=== PATIENT | female | born 1975 | race African-American/Black ===

== ENCOUNTER 2016-06-21 13:01 | Inpatient (IN) | payer MEDICAID, OTHER ==
[2016-06-21] VITALS (33 sets, daily range): BP systolic 64–130; BP diastolic 35–79
[~2016-06-21] VITALS: Ht 165.1 cm; Wt 71.7 kg
[2016-06-21] MEDS ORDERED: PIPERACILLIN /TAZOBACTAM 3.375 G in IV D5W 50 ML IV ONE (13:30)
[2016-06-21] MEDS ORDERED: IV NS 0.9% 1,000 ML BAG IV ONE ×2 (13:30→14:00)
[2016-06-21] MEDS ORDERED: VANCOMYCIN 1 GM in IV D5W 250 ML IV ONE ×2 (13:30→14:00)
[2016-06-21] MEDS ORDERED: IV SET PRIMARY 1 EA INFUS.SET MC ONE (13:51)
[2016-06-21] MEDS ORDERED: IV NS 0.9% 2,000 ML ONE (13:51)
[2016-06-21] MEDS ORDERED: IV NS 0.9% 250 ML IV ONE (13:51)
[2016-06-21] MEDS ORDERED: IV SET PRIMARY PUMP SET 1 EA INFUS.SET MC ONE ×3 (13:51→18:52)
[2016-06-21] MEDS ORDERED: IV NS 0.9% 50 ML BAG IV ONE (14:00)
[2016-06-21] MEDS ORDERED: IV D5/ 0.9% NACL 1,000 ML IV PRN (14:00)
[2016-06-21 14:08] LABS: BASOPHILS % (AUTO) 0.1 % (0.0-2.0); DIFF TOTAL % 100 %; HEMATOCRIT 30 % (33-45); HEMOGLOBIN 9.6 g/dL (11.5-14.8); LYMPHOCYTES # (AUTO) 0.9 /CMM (0.8-4.8); LYMPHOCYTES % (AUTO) 4.1 % (20.0-44.0); MEAN CORPUSCULAR HEMOGLOBIN 25 PG (26.0-33.0); MEAN CORPUSCULAR HGB CONC 32 g/dl (31.0-36.0); MEAN CORPUSCULAR VOLUME 78 fL (82-100); MONOCYTES # (AUTO) 0.7 /CMM (0.1-1.30); NEUTROPHILS % (AUTO) 92.8 % (43.0-81.0); PLATELET COUNT (AUTO) 461 /CMM (150-450); RED BLOOD CELL COUNT(AUTO) 3.84 MIL/uL (4.0-5.2); WHITE BLOOD COUNT (AUTO) 21.6 K/uL (4.3-11.0)
[2016-06-21 14:17] LABS: ALANINE AMINOTRANSFERASE 42 U/L (12-78); ALBUMIN 2.1 g/dL (3.4-5.0); ANION GAP 18 (5-14); ASPARTATE AMINOTRANSFERASE 44 U/L (15-37); BILIRUBIN,DIRECT 0.1 mg/dL (0.0-0.2); BILIRUBIN,TOTAL 0.2 mg/dL (0.2-1.0); CARBON DIOXIDE 15 mmol/L (21-32); CHLORIDE 99 mmol/L (98-107); CREATININE 0.5 mg/dL (0.6-1.3); GFR 166 mL/min (>60); GLUCOSE 109 mg/dL (74-106); INDIRECT BILIRUBIN 0.1 mg/dL (0.0-1.1); POTASSIUM 4.5 mmol/L (3.5-5.1); SODIUM SERUM 128 mmol/L (136-145); TOTAL PROTEIN, SERUM 7.6 g/dL (6.4-8.2); UREA NITROGEN, BLOOD 50 mg/dL (7-18)
[2016-06-21 14:18] LABS: TROPONIN I < 0.017 ng/mL (0.00-0.056)
[2016-06-21 14:20] LABS: INR 1.09 (0.87-1.13); PROTHROMBIN TIME 11.8 SECS (9.5-12.7)
[2016-06-21 14:22] LABS: LACTIC ACID 1.5 mmol/L (0.4-2.0)
[2016-06-21] MEDS ORDERED: IV NS 0.9% 1,000 ML IV PRN (15:00)
[2016-06-21 15:15] LABS: ABG BASE EXCESS -13.4 mmol/L; ABG HCO3 12.8 mmol/L; ABG PCO2 30.4 mmHg (35.0-45.0); ABG PH 7.241 (7.350-7.450); ABG PO2 94.6 mmHg (75.0-100.0); ABG TOTAL HEMOGLOBIN 8.9 G/dL (12.0-16.0); ALLEN TEST Pass; AaDO2 83.6 mmHg; O2Hb 94.1 % (94.0-97.0)
[2016-06-21] MEDS ORDERED: FERR220S2 GT (15:27)
[2016-06-21] MEDS ORDERED: DIPH50CA4 GT (15:27)
[2016-06-21] MEDS ORDERED: CYAN100T3 GT (15:27)
[2016-06-21] MEDS ORDERED: PANT40SU2 GT (15:27)
[2016-06-21] MEDS ORDERED: MORP15TA10 GT (15:27)
[2016-06-21] MEDS ORDERED: AMIN236L GT (15:27)
[2016-06-21] MEDS ORDERED: POTA20LI4 GT (15:27)
[2016-06-21] MEDS ORDERED: ASCO500T10 GT (15:27)
[2016-06-21] MEDS ORDERED: MULT240L7 GT (15:27)
[2016-06-21] MEDS ORDERED: MAG355OR18 GT (15:27)
[2016-06-21] MEDS ORDERED: ESCI20TA GT (15:27)
[2016-06-21] MEDS ORDERED: ARGI1POW13 GT (15:27)
[2016-06-21] MEDS ORDERED: BACL10TA GT (15:27)
[2016-06-21] MEDS ORDERED: MAGN400O6 GT (15:27)
[2016-06-21] MEDS ORDERED: IPRA3AMP HHN (15:27)
[2016-06-21] MEDS ORDERED: ENOX40DI SQ (15:27)
[2016-06-21] MEDS ORDERED: HYDR-3326 GT (15:27)
[2016-06-21] MEDS ORDERED: TEMA15CA GT (15:27)
[2016-06-21] MEDS ORDERED: POLY15DR17 EACHEYE (15:27)
[2016-06-21] MEDS ORDERED: ACET325T53 GT (15:27)
[2016-06-21] MEDS ORDERED: ZINC220C6 GT (15:31)
[2016-06-21 15:51] LABS: IRON, SERUM 32 ug/dl (50-175); PERCENT SATURATION 18 % (14-33); TOTAL IRON BINDING CAPACITY 182 ug/dl (250-450)
[2016-06-21] MEDS ORDERED: FEE PK DOSING 1 MIN EA MC ONE (16:11)
[2016-06-21] MEDS ORDERED: NEUTRA PHOS GT (16:19)
[2016-06-21] MEDS ORDERED: IV D5/ 0.9% NACL 1,000 ML IV ONE (17:00)
[2016-06-21 17:03] LABS: BAND % (MANUAL) 4 % (0.0-5.0)
[2016-06-21 17:04] LABS: LYMPHOCYTES % (MANUAL) 8 % (16-48)
[2016-06-21] MEDS ORDERED: SECONDARY IV SET 1 EA INFUS.SET MC ONE (18:52)
[2016-06-21] MEDS: Sodium Bicarbonate 100 MEQ in IV D5W 1,000 ML IV PRN (19:24)
[2016-06-21] MEDS: NOREPINEPHRINE 16 MG in IV D5W 500 ML IV PRN (19:25)
[2016-06-21] MEDS ORDERED: GLYTROL 1,000 ML BAG GT PRN (20:00)
[2016-06-21] MEDS: PIPERACILLIN /TAZOBACTAM 3.375 G in IV D5W 50 ML IV SCH ×2 (20:17→23:01)
[2016-06-21] MEDS: DAKINS HALF STRENGTH (0.25%) 480 ML BOTTLE TOP SCH (20:17)
[2016-06-21] MEDS ORDERED: VANCOMYCIN 1 GM in IV D5W 250 ML IV SCH (22:00)
[2016-06-22] VITALS (108 sets, daily range): BP systolic 86–149; BP diastolic 29–75
[2016-06-22 01:20] LABS: PH,URINE 5.5 (5.0-8.0)
[2016-06-22 01:21] LABS: ADD UA MICROSCOPIC YES; KETONES,URINE NEGATIVE (NEGATIVE); LEUKOCYTE ESTERASE ,URINE 2+ (NEGATIVE)
[2016-06-22 01:33] LABS: ADD URINE CULTURE YES; WBC,URINE 51-80 /HPF (0-3)
[2016-06-22] MEDS ORDERED: VANCOMYCIN 1 GM VIAL ONE (01:58)
[2016-06-22] MEDS ORDERED: IV D5W 250 ML IV ONE (01:58)
[2016-06-22] MEDS ORDERED: IV SET PRIMARY PUMP SET 1 EA INFUS.SET MC ONE ×2 (01:59→09:20)
[2016-06-22] MEDS ORDERED: SECONDARY IV SET 1 EA INFUS.SET MC ONE (02:04)
[2016-06-22] MEDS: VANCOMYCIN 1 GM in IV D5W 250 ML IV SCH ×2 (02:05→13:56)
[2016-06-22 05:13] LABS: ALBUMIN 1.6 g/dL (3.4-5.0); BILIRUBIN,TOTAL 0.3 mg/dL (0.2-1.0); CALCIUM, SERUM 9.6 mg/dL (8.5-10.1); CREATININE 0.5 mg/dL (0.6-1.3); PHOSPHORUS 2.2 mg/dL (2.5-4.9); POTASSIUM 2.9 mmol/L (3.5-5.1); TOTAL PROTEIN, SERUM 6.1 g/dL (6.4-8.2)
[2016-06-22] MEDS: Sodium Bicarbonate 100 MEQ in IV D5W 1,000 ML IV PRN ×2 (05:21→16:20)
[2016-06-22] MEDS: PIPERACILLIN /TAZOBACTAM 3.375 G in IV D5W 50 ML IV SCH ×3 (05:21→17:06)
[2016-06-22 05:35] LABS: DIFF TOTAL % 100 %; EOSINOPHILS % (AUTO) 0.2 % (0.0-6.0); HEMATOCRIT 24 % (33-45); HEMOGLOBIN 7.6 g/dL (11.5-14.8); LYMPHOCYTES # (AUTO) 0.5 /CMM (0.8-4.8); LYMPHOCYTES % (AUTO) 2.6 % (20.0-44.0); MEAN CORPUSCULAR HEMOGLOBIN 25 PG (26.0-33.0); MEAN CORPUSCULAR HGB CONC 31 g/dl (31.0-36.0); MEAN CORPUSCULAR VOLUME 79 fL (82-100); MONOCYTES # (AUTO) 0.5 /CMM (0.1-1.30); MONOCYTES % (AUTO) 2.6 % (2.0-12.0); NEUTROPHILS # (AUTO) 17.2 /CMM (1.8-8.9); NEUTROPHILS % (AUTO) 94.6 % (43.0-81.0); PLATELET COUNT (AUTO) 405 /CMM (150-450); RED BLOOD CELL COUNT(AUTO) 3.06 MIL/uL (4.0-5.2); WHITE BLOOD COUNT (AUTO) 18.2 K/uL (4.3-11.0)
[2016-06-22 06:18] LABS: INR 1.12 (0.87-1.13); PROTHROMBIN TIME 12.1 SECS (9.5-12.7)
[2016-06-22] MEDS: MORPHINE SULFATE INJ 2 MG/ML DISP.SYRIN IV PRN ×3 (07:25→20:44)
[2016-06-22] MEDS: PANTOPRAZOLE 40 MG VIAL IV SCH (08:02)
[2016-06-22] MEDS: DAKINS HALF STRENGTH (0.25%) 480 ML BOTTLE TOP SCH (08:03)
[2016-06-22 09:19] LABS: ABG BASE EXCESS 1.5 mmol/L; ABG HCO3 26.4 mmol/L; ABG PCO2 42.5 mmHg (35.0-45.0); ABG PH 7.411 (7.350-7.450); ABG PO2 62.2 mmHg (75.0-100.0); ABG TOTAL HEMOGLOBIN 13.8 G/dL (12.0-16.0); ALLEN TEST Pass; AaDO2 463.6 mmHg; O2Hb 89.7 % (94.0-97.0)
[2016-06-22] MEDS: POTASSIUM CL. PREMIX PERIPHER. 50 ML IV SCH ×4 (09:26→12:40)
[2016-06-22] MEDS: Magnesium 1GM/D5W 100ML PREMIX 100 ML IV SCH ×2 (09:26→10:21)
[2016-06-22] MEDS ORDERED: POTASSIUM PHOSPHATE MM 15 MMOL in IV D5W 250 ML IV SCH (10:00)
[2016-06-22] MEDS ORDERED: SILVER NITRATE APPLICATOR 1 EA BOX TP ONE ×2 (10:00)
[2016-06-22] MEDS ORDERED: LIDOCAINE 1%-EPI 1:100,000 20 ML VIAL TP ONE (10:00)
[2016-06-22 10:03] LABS: ABG BASE EXCESS -7.5 mmol/L; ABG HCO3 17.3 mmol/L; ABG PCO2 32.2 mmHg (35.0-45.0); ABG PH 7.347 (7.350-7.450); ABG PO2 83.2 mmHg (75.0-100.0); ABG TOTAL HEMOGLOBIN 9.1 G/dL (12.0-16.0); ALLEN TEST Pass; AaDO2 128.9 mmHg; O2Hb 93.9 % (94.0-97.0)
[2016-06-22] MEDS: ALPRAZOLAM 0.25 MG TABLET GT SCH ×2 (10:25→16:20)
[2016-06-22] MEDS ORDERED: HYDROGEL DRESSING 90 GM TUBE TP PRN (14:00)
[2016-06-22] MEDS: LACTOBACILLUS RHAMNOSUS GG 1 EACH CAP.SPRINK GT SCH (16:20)
[2016-06-22] MEDS: GLYTROL 1,000 ML BAG GT PRN (16:21)
[2016-06-22] MEDS: PROSOURCE / PROSTAT (PYXIS) 30 ML UDC GT SCH (16:21)
[2016-06-22] MEDS: HYDROGEL DRESSING 90 GM TUBE TP SCH (17:06)
[2016-06-22] MEDS: NOREPINEPHRINE 16 MG in IV D5W 500 ML IV PRN (20:21)
[2016-06-22] MEDS: VANCOMYCIN 0.75 GM in IV D5W 250 ML IV SCH (20:22)
[2016-06-23] VITALS (110 sets, daily range): BP systolic 82–134; BP diastolic 41–84
[2016-06-23] MEDS: PIPERACILLIN /TAZOBACTAM 3.375 G in IV D5W 50 ML IV SCH ×4 (00:20→17:33)
[2016-06-23] MEDS: Sodium Bicarbonate 100 MEQ in IV D5W 1,000 ML IV PRN (02:33)
[2016-06-23] MEDS: MORPHINE SULFATE INJ 2 MG/ML DISP.SYRIN IV PRN ×2 (02:34→10:10)
[2016-06-23 04:56] LABS: BASOPHILS % (AUTO) 0.2 % (0.0-2.0); DIFF TOTAL % 100 %; EOSINOPHILS # (AUTO) 0.1 /CMM (0.0-0.7); HEMATOCRIT 21 % (33-45); LYMPHOCYTES # (AUTO) 0.7 /CMM (0.8-4.8); LYMPHOCYTES % (AUTO) 5.8 % (20.0-44.0); MEAN CORPUSCULAR HEMOGLOBIN 26 PG (26.0-33.0); MEAN CORPUSCULAR HGB CONC 32 g/dl (31.0-36.0); MEAN CORPUSCULAR VOLUME 79 fL (82-100); MONOCYTES # (AUTO) 0.3 /CMM (0.1-1.30); MONOCYTES % (AUTO) 2.1 % (2.0-12.0); NEUTROPHILS # (AUTO) 11.2 /CMM (1.8-8.9); NEUTROPHILS % (AUTO) 90.9 % (43.0-81.0); PLATELET COUNT (AUTO) 447 /CMM (150-450); RED BLOOD CELL COUNT(AUTO) 2.64 MIL/uL (4.0-5.2); WHITE BLOOD COUNT (AUTO) 12.3 K/uL (4.3-11.0)
[2016-06-23 05:07] LABS: HEMOGLOBIN 6.7 g/dL (11.5-14.8)
[2016-06-23 05:26] LABS: CALCIUM, SERUM 8.9 mg/dL (8.5-10.1); CREATININE 0.4 mg/dL (0.6-1.3); PHOSPHORUS 2.5 mg/dL (2.5-4.9); POTASSIUM 3.5 mmol/L (3.5-5.1)
[2016-06-23 06:03] LABS: BAND % (MANUAL) 7 % (0.0-5.0); BASOPHILS % (MANUAL) 0 % (0.0-2.0); EOSINOPHILS % (MANUAL) 1 % (0-4); LYMPHOCYTES % (MANUAL) 8 % (16-48); PLATELET ESTIMATE INCREASED
[2016-06-23 06:04] LABS: ANISOCYTOSIS 2+; HYPOCHROMASIA 1+; TEAR DROP CELLS 1+
[2016-06-23] MEDS: PROSOURCE / PROSTAT (PYXIS) 30 ML UDC GT SCH ×2 (08:34→17:33)
[2016-06-23] MEDS: MULTIVITAMINS,THERAPEUTIC 1 UDTAB TABLET GT SCH (08:34)
[2016-06-23] MEDS: DAKINS HALF STRENGTH (0.25%) 480 ML BOTTLE TOP SCH (08:34)
[2016-06-23] MEDS: PANTOPRAZOLE 40 MG VIAL IV SCH (08:34)
[2016-06-23] MEDS: LACTOBACILLUS RHAMNOSUS GG 1 EACH CAP.SPRINK GT SCH ×2 (08:34→17:33)
[2016-06-23] MEDS: HYDROGEL DRESSING 90 GM TUBE TP SCH (08:34)
[2016-06-23] MEDS: ALPRAZOLAM 0.25 MG TABLET GT SCH ×2 (08:34→17:33)
[2016-06-23] MEDS: VANCOMYCIN 0.75 GM in IV D5W 250 ML IV SCH ×2 (08:34→20:07)
[2016-06-23] MEDS: ASCORBIC ACID 500 MG TABLET GT SCH (08:34)
[2016-06-23] MEDS ORDERED: Z GUARD REMEDY 2 OZ OINT TP PRN (09:30)
[2016-06-23] MEDS: Z GUARD REMEDY 2 OZ OINT TP SCH (10:05)
[2016-06-23] MEDS: Magnesium 1GM/D5W 100ML PREMIX 100 ML IV SCH ×3 (10:05→11:10)
[2016-06-23] MEDS ORDERED: Magnesium 1GM/D5W 100ML PREMIX 100 ML IV SCH ×2 (11:00→13:00)
[2016-06-23 11:57] LABS: ABG BASE EXCESS 2.3 mmol/L; ABG HCO3 25.8 mmol/L; ABG PCO2 35.7 mmHg (35.0-45.0); ABG PH 7.477 (7.350-7.450); ABG PO2 137.1 mmHg (75.0-100.0); ABG TOTAL HEMOGLOBIN 9.2 G/dL (12.0-16.0); ALLEN TEST Pass; O2Hb 96.6 % (94.0-97.0)
[2016-06-23] MEDS: IV D5/ 0.9% NACL 1,000 ML IV PRN (14:25)
[2016-06-23] MEDS: GLYTROL 1,000 ML BAG GT PRN (14:25)
[2016-06-23] MEDS ORDERED: IV NS 0.9% 250 ML IV ONE (19:51)
[2016-06-23] MEDS ORDERED: BLOOD IV SET 1 EA INFUS.SET MC ONE (19:51)
[2016-06-23] MEDS: NOREPINEPHRINE 16 MG in IV D5W 500 ML IV PRN (20:06)
[2016-06-24] VITALS (85 sets, daily range): BP systolic 90–154; BP diastolic 47–87
[2016-06-24] MEDS: PIPERACILLIN /TAZOBACTAM 3.375 G in IV D5W 50 ML IV SCH ×4 (00:20→17:05)
[2016-06-24] MEDS ORDERED: BLOOD IV SET 1 EA INFUS.SET MC ONE (00:47)
[2016-06-24] MEDS: MORPHINE SULFATE INJ 2 MG/ML DISP.SYRIN IV PRN ×5 (04:00→20:36)
[2016-06-24 05:28] LABS: BASOPHILS % (AUTO) 0.2 % (0.0-2.0); DIFF TOTAL % 100 %; EOSINOPHILS # (AUTO) 0.1 /CMM (0.0-0.7); EOSINOPHILS % (AUTO) 0.6 % (0.0-6.0); HEMATOCRIT 30 % (33-45); HEMOGLOBIN 9.7 g/dL (11.5-14.8); LYMPHOCYTES # (AUTO) 0.9 /CMM (0.8-4.8); LYMPHOCYTES % (AUTO) 9.1 % (20.0-44.0); MEAN CORPUSCULAR HEMOGLOBIN 27 PG (26.0-33.0); MEAN CORPUSCULAR HGB CONC 33 g/dl (31.0-36.0); MEAN CORPUSCULAR VOLUME 82 fL (82-100); MONOCYTES # (AUTO) 0.5 /CMM (0.1-1.30); MONOCYTES % (AUTO) 5.7 % (2.0-12.0); NEUTROPHILS # (AUTO) 8.1 /CMM (1.8-8.9); NEUTROPHILS % (AUTO) 84.4 % (43.0-81.0); PLATELET COUNT (AUTO) 386 /CMM (150-450); RED BLOOD CELL COUNT(AUTO) 3.59 MIL/uL (4.0-5.2); WHITE BLOOD COUNT (AUTO) 9.6 K/uL (4.3-11.0)
[2016-06-24 05:53] LABS: CALCIUM, SERUM 8.8 mg/dL (8.5-10.1); CREATININE 0.3 mg/dL (0.6-1.3); PHOSPHORUS 2.6 mg/dL (2.5-4.9); POTASSIUM 3.5 mmol/L (3.5-5.1)
[2016-06-24] MEDS: PROSOURCE / PROSTAT (PYXIS) 30 ML UDC GT SCH ×2 (08:10→16:11)
[2016-06-24] MEDS: MULTIVITAMINS,THERAPEUTIC 1 UDTAB TABLET GT SCH (08:10)
[2016-06-24] MEDS: ASCORBIC ACID 500 MG TABLET GT SCH (08:10)
[2016-06-24] MEDS: ALPRAZOLAM 0.25 MG TABLET GT SCH ×2 (08:10→16:10)
[2016-06-24] MEDS: DAKINS HALF STRENGTH (0.25%) 480 ML BOTTLE TOP SCH (08:11)
[2016-06-24] MEDS: LACTOBACILLUS RHAMNOSUS GG 1 EACH CAP.SPRINK GT SCH ×2 (08:11→16:10)
[2016-06-24] MEDS: PANTOPRAZOLE 40 MG VIAL IV SCH (08:11)
[2016-06-24] MEDS: HYDROGEL DRESSING 90 GM TUBE TP SCH (08:12)
[2016-06-24] MEDS: VANCOMYCIN 0.75 GM in IV D5W 250 ML IV SCH ×2 (08:20→20:42)
[2016-06-24] MEDS: Z GUARD REMEDY 2 OZ OINT TP SCH (08:20)
[2016-06-24] MEDS: IV D5/ 0.9% NACL 1,000 ML IV PRN (08:54)
[2016-06-24] MEDS: Magnesium 1GM/D5W 100ML PREMIX 100 ML IV SCH ×2 (08:55→10:08)
[2016-06-24] MEDS: LORAZEPAM INJ 2 MG/ML VIAL IVP PRN ×2 (10:50→17:05)
[2016-06-24] MEDS: FIBERSOURCE HN 1,000 ML BOTTLE GT PRN (10:50)
[2016-06-24] MEDS: NOREPINEPHRINE 16 MG in IV D5W 500 ML IV PRN (16:05)
[2016-06-25] VITALS (52 sets, daily range): BP systolic 86–126; BP diastolic 44–94
[2016-06-25] MEDS: IV D5/ 0.9% NACL 1,000 ML IV PRN ×2 (00:12→16:17)
[2016-06-25] MEDS: LORAZEPAM INJ 2 MG/ML VIAL IVP PRN ×2 (00:13→14:28)
[2016-06-25] MEDS: PIPERACILLIN /TAZOBACTAM 3.375 G in IV D5W 50 ML IV SCH ×5 (00:16→23:59)
[2016-06-25] MEDS: MORPHINE SULFATE INJ 2 MG/ML DISP.SYRIN IV PRN ×3 (01:54→17:05)
[2016-06-25] MEDS: FIBERSOURCE HN 1,000 ML BOTTLE GT PRN ×2 (04:15→18:54)
[2016-06-25 05:24] LABS: BASOPHILS % (AUTO) 0.5 % (0.0-2.0); DIFF TOTAL % 100 %; EOSINOPHILS # (AUTO) 0.1 /CMM (0.0-0.7); EOSINOPHILS % (AUTO) 1.2 % (0.0-6.0); HEMATOCRIT 29 % (33-45); HEMOGLOBIN 9.3 g/dL (11.5-14.8); LYMPHOCYTES # (AUTO) 0.8 /CMM (0.8-4.8); LYMPHOCYTES % (AUTO) 12.3 % (20.0-44.0); MEAN CORPUSCULAR HEMOGLOBIN 27 PG (26.0-33.0); MEAN CORPUSCULAR HGB CONC 32 g/dl (31.0-36.0); MEAN CORPUSCULAR VOLUME 82 fL (82-100); MONOCYTES # (AUTO) 0.6 /CMM (0.1-1.30); MONOCYTES % (AUTO) 8.9 % (2.0-12.0); NEUTROPHILS # (AUTO) 5.2 /CMM (1.8-8.9); NEUTROPHILS % (AUTO) 77.1 % (43.0-81.0); PLATELET COUNT (AUTO) 350 /CMM (150-450); RED BLOOD CELL COUNT(AUTO) 3.49 MIL/uL (4.0-5.2); WHITE BLOOD COUNT (AUTO) 6.8 K/uL (4.3-11.0)
[2016-06-25 05:51] LABS: CALCIUM, SERUM 8.7 mg/dL (8.5-10.1); CREATININE 0.3 mg/dL (0.6-1.3); PHOSPHORUS 2.4 mg/dL (2.5-4.9)
[2016-06-25] MEDS: LACTOBACILLUS RHAMNOSUS GG 1 EACH CAP.SPRINK GT SCH ×2 (08:53→16:17)
[2016-06-25] MEDS: PROSOURCE / PROSTAT (PYXIS) 30 ML UDC GT SCH ×2 (08:53→16:18)
[2016-06-25] MEDS: MULTIVITAMINS,THERAPEUTIC 1 UDTAB TABLET GT SCH (08:53)
[2016-06-25] MEDS: ALPRAZOLAM 0.25 MG TABLET GT SCH ×2 (08:53→16:18)
[2016-06-25] MEDS: PANTOPRAZOLE 40 MG VIAL IV SCH (08:53)
[2016-06-25] MEDS: ASCORBIC ACID 500 MG TABLET GT SCH (08:53)
[2016-06-25] MEDS: HYDROGEL DRESSING 90 GM TUBE TP SCH (08:54)
[2016-06-25] MEDS: DAKINS HALF STRENGTH (0.25%) 480 ML BOTTLE TOP SCH (08:54)
[2016-06-25] MEDS: Z GUARD REMEDY 2 OZ OINT TP SCH (08:59)
[2016-06-25] MEDS: VANCOMYCIN 0.75 GM in IV D5W 250 ML IV SCH ×2 (09:44→21:03)
[2016-06-25] MEDS ORDERED: IV SET PRIMARY PUMP SET 1 EA INFUS.SET MC ONE ×2 (10:30→11:45)
[2016-06-25] MEDS ORDERED: Magnesium 1GM/D5W 100ML PREMIX PIGGYBACK IV ONE (11:00)
[2016-06-25] MEDS ORDERED: SECONDARY IV SET 1 EA INFUS.SET MC ONE (11:45)
[2016-06-25] MEDS: Magnesium 1GM/D5W 100ML PREMIX 100 ML IV SCH ×2 (11:50→13:52)
[2016-06-25] MEDS: POTASSIUM CL. PREMIX PERIPHER. 50 ML IV SCH ×6 (11:50→16:58)
[2016-06-25] MEDS ORDERED: SILVER NITRATE APPLICATOR 1 EA BOX TP ONE ×2 (13:30)
[2016-06-25] MEDS ORDERED: LIDOCAINE 1%-EPI 1:100,000 20 ML VIAL TP ONE (13:30)
[2016-06-25] MEDS ORDERED: NEUTRA PHOS 1 POWD.PACKET GT ONE (14:00)
[2016-06-25] MEDS ORDERED: TEMAZEPAM 15 MG CAPSULE ONE (23:56)
[2016-06-26] VITALS (88 sets, daily range): BP systolic 79–143; BP diastolic 45–91
[2016-06-26] MEDS: TEMAZEPAM 15 MG CAPSULE GT PRN
[2016-06-26 05:17] LABS: BASOPHILS % (AUTO) 0.7 % (0.0-2.0); DIFF TOTAL % 100 %; EOSINOPHILS # (AUTO) 0.1 /CMM (0.0-0.7); EOSINOPHILS % (AUTO) 1.7 % (0.0-6.0); HEMATOCRIT 28 % (33-45); LYMPHOCYTES # (AUTO) 0.9 /CMM (0.8-4.8); LYMPHOCYTES % (AUTO) 15.7 % (20.0-44.0); MEAN CORPUSCULAR HEMOGLOBIN 27 PG (26.0-33.0); MEAN CORPUSCULAR HGB CONC 32 g/dl (31.0-36.0); MEAN CORPUSCULAR VOLUME 83 fL (82-100); MONOCYTES # (AUTO) 0.7 /CMM (0.1-1.30); MONOCYTES % (AUTO) 11.3 % (2.0-12.0); NEUTROPHILS # (AUTO) 4.1 /CMM (1.8-8.9); NEUTROPHILS % (AUTO) 70.6 % (43.0-81.0); PLATELET COUNT (AUTO) 356 /CMM (150-450); RED BLOOD CELL COUNT(AUTO) 3.39 MIL/uL (4.0-5.2); WHITE BLOOD COUNT (AUTO) 5.9 K/uL (4.3-11.0)
[2016-06-26 05:32] LABS: CALCIUM, SERUM 8.7 mg/dL (8.5-10.1); CREATININE 0.3 mg/dL (0.6-1.3); PHOSPHORUS 2.2 mg/dL (2.5-4.9); POTASSIUM 4.2 mmol/L (3.5-5.1)
[2016-06-26] MEDS: PIPERACILLIN /TAZOBACTAM 3.375 G in IV D5W 50 ML IV SCH ×3 (06:06→17:29)
[2016-06-26] MEDS: NOREPINEPHRINE 16 MG in IV D5W 500 ML IV PRN ×2 (06:24→19:17)
[2016-06-26] MEDS: PANTOPRAZOLE 40 MG VIAL IV SCH (08:00)
[2016-06-26] MEDS: PROSOURCE / PROSTAT (PYXIS) 30 ML UDC GT SCH ×2 (08:00→16:07)
[2016-06-26] MEDS: LACTOBACILLUS RHAMNOSUS GG 1 EACH CAP.SPRINK GT SCH ×2 (08:01→16:07)
[2016-06-26] MEDS: MULTIVITAMINS,THERAPEUTIC 1 UDTAB TABLET GT SCH (08:01)
[2016-06-26] MEDS: ASCORBIC ACID 500 MG TABLET GT SCH (08:01)
[2016-06-26] MEDS: ALPRAZOLAM 0.25 MG TABLET GT SCH ×2 (08:01→16:07)
[2016-06-26] MEDS: VANCOMYCIN 0.75 GM in IV D5W 250 ML IV SCH ×2 (08:01→21:53)
[2016-06-26] MEDS: Z GUARD REMEDY 2 OZ OINT TP SCH (08:02)
[2016-06-26] MEDS: DAKINS HALF STRENGTH (0.25%) 480 ML BOTTLE TOP SCH (08:02)
[2016-06-26] MEDS: MORPHINE SULFATE INJ 2 MG/ML DISP.SYRIN IV PRN ×3 (08:10→20:43)
[2016-06-26] MEDS: Magnesium 1GM/D5W 100ML PREMIX 100 ML IV SCH ×2 (11:20→12:12)
[2016-06-26] MEDS ORDERED: NEUTRA PHOS 1 POWD.PACKET GT ONE (15:30)
[2016-06-26] MEDS ORDERED: IV NS 0.9% 1,000 ML BAG IV PRN (19:00)
[2016-06-26] MEDS ORDERED: IV NS 0.9% 500 ML BAG IV ONE (19:00)
[2016-06-27] VITALS (74 sets, daily range): BP systolic 79–143; BP diastolic 48–97
[2016-06-27] MEDS: PIPERACILLIN /TAZOBACTAM 3.375 G in IV D5W 50 ML IV SCH ×5 (00:09→23:47)
[2016-06-27 05:15] LABS: BASOPHILS % (AUTO) 0.4 % (0.0-2.0); DIFF TOTAL % 100 %; EOSINOPHILS # (AUTO) 0.1 /CMM (0.0-0.7); EOSINOPHILS % (AUTO) 1.4 % (0.0-6.0); HEMATOCRIT 27 % (33-45); HEMOGLOBIN 8.9 g/dL (11.5-14.8); LYMPHOCYTES # (AUTO) 0.9 /CMM (0.8-4.8); LYMPHOCYTES % (AUTO) 15.2 % (20.0-44.0); MEAN CORPUSCULAR HEMOGLOBIN 27 PG (26.0-33.0); MEAN CORPUSCULAR HGB CONC 33 g/dl (31.0-36.0); MEAN CORPUSCULAR VOLUME 83 fL (82-100); MONOCYTES # (AUTO) 0.6 /CMM (0.1-1.30); NEUTROPHILS # (AUTO) 4.1 /CMM (1.8-8.9); PLATELET COUNT (AUTO) 337 /CMM (150-450); RED BLOOD CELL COUNT(AUTO) 3.29 MIL/uL (4.0-5.2); WHITE BLOOD COUNT (AUTO) 5.7 K/uL (4.3-11.0)
[2016-06-27 05:27] LABS: CALCIUM, SERUM 8.7 mg/dL (8.5-10.1); CREATININE 0.3 mg/dL (0.6-1.3); PHOSPHORUS 2.5 mg/dL (2.5-4.9); POTASSIUM 3.9 mmol/L (3.5-5.1)
[2016-06-27] MEDS: MORPHINE SULFATE INJ 2 MG/ML DISP.SYRIN IV PRN ×3 (06:27→12:26)
[2016-06-27] MEDS: PROSOURCE / PROSTAT (PYXIS) 30 ML UDC GT SCH ×2 (09:07→18:01)
[2016-06-27] MEDS: MULTIVITAMINS,THERAPEUTIC 1 UDTAB TABLET GT SCH (09:07)
[2016-06-27] MEDS: BACLOFEN (10 MG) 10 MG TABLET PO SCH ×3 (09:07→18:01)
[2016-06-27] MEDS: LACTOBACILLUS RHAMNOSUS GG 1 EACH CAP.SPRINK GT SCH ×2 (09:07→18:01)
[2016-06-27] MEDS: PANTOPRAZOLE 40 MG VIAL IV SCH (09:07)
[2016-06-27] MEDS: VANCOMYCIN 0.75 GM in IV D5W 250 ML IV SCH ×2 (09:08→21:03)
[2016-06-27] MEDS: ALPRAZOLAM 0.25 MG TABLET GT SCH ×2 (09:08→18:01)
[2016-06-27] MEDS: ASCORBIC ACID 500 MG TABLET GT SCH (09:08)
[2016-06-27] MEDS: Z GUARD REMEDY 2 OZ OINT TP SCH (09:55)
[2016-06-27] MEDS: DAKINS HALF STRENGTH (0.25%) 480 ML BOTTLE TOP SCH (09:55)
[2016-06-27 11:09] LABS: PLATELET ESTIMATE ADEQUATE
[2016-06-27 11:10] LABS: ANISOCYTOSIS 1+
[2016-06-27] MEDS ORDERED: MORPHINE SULFATE INJ 2 MG/ML DISP.SYRIN IV STA (12:23)
[2016-06-27] MEDS ORDERED: IV SET PRIMARY PUMP SET 1 EA INFUS.SET MC ONE ×2 (12:53→14:17)
[2016-06-27] MEDS: Magnesium 1GM/D5W 100ML PREMIX 100 ML IV SCH ×4 (13:01→16:33)
[2016-06-27] MEDS: IV NS 0.9% 1,000 ML IV PRN (13:05)
[2016-06-27] MEDS: FIBERSOURCE HN 1,000 ML BOTTLE GT PRN (13:06)
[2016-06-27] MEDS ORDERED: ATROPINE SULFATE 1 MG/10 ML DISP.SYRIN IV ONE (16:00)
[2016-06-28] VITALS (104 sets, daily range): BP systolic 83–143; BP diastolic 41–91
[2016-06-28] MEDS: PIPERACILLIN /TAZOBACTAM 3.375 G in IV D5W 50 ML IV SCH ×4 (05:17→23:35)
[2016-06-28] MEDS: IV NS 0.9% 1,000 ML IV PRN ×2 (05:21→19:45)
[2016-06-28] MEDS ORDERED: IV D5W 500 ML IV ONE (05:57)
[2016-06-28] MEDS ORDERED: NOREPINEPHRINE 4 MG/4 ML AMPUL IV ONE (05:57)
[2016-06-28 06:01] LABS: CALCIUM, SERUM 8.9 mg/dL (8.5-10.1); CREATININE 0.4 mg/dL (0.6-1.3); POTASSIUM 3.8 mmol/L (3.5-5.1)
[2016-06-28] MEDS: NOREPINEPHRINE 16 MG in IV D5W 500 ML IV PRN ×2 (06:05→18:06)
[2016-06-28] MEDS: PANTOPRAZOLE 40 MG VIAL IV SCH (09:03)
[2016-06-28] MEDS: BACLOFEN (10 MG) 10 MG TABLET PO SCH ×3 (09:03→17:41)
[2016-06-28] MEDS: PROSOURCE / PROSTAT (PYXIS) 30 ML UDC GT SCH ×2 (09:03→17:41)
[2016-06-28] MEDS: ALPRAZOLAM 0.25 MG TABLET GT SCH ×2 (09:03→17:41)
[2016-06-28] MEDS: MULTIVITAMINS,THERAPEUTIC 1 UDTAB TABLET GT SCH (09:03)
[2016-06-28] MEDS: LACTOBACILLUS RHAMNOSUS GG 1 EACH CAP.SPRINK GT SCH ×2 (09:03→17:42)
[2016-06-28] MEDS: Z GUARD REMEDY 2 OZ OINT TP SCH (09:04)
[2016-06-28] MEDS: DAKINS HALF STRENGTH (0.25%) 480 ML BOTTLE TOP SCH (09:04)
[2016-06-28] MEDS: ASCORBIC ACID 500 MG TABLET GT SCH (09:08)
[2016-06-28] MEDS: VANCOMYCIN 0.75 GM in IV D5W 250 ML IV SCH ×2 (09:11→20:14)
[2016-06-28] MEDS: MORPHINE SULFATE INJ 2 MG/ML DISP.SYRIN IV PRN (12:22)
[2016-06-28] MEDS: Magnesium 1GM/D5W 100ML PREMIX 100 ML IV SCH ×2 (12:59→14:12)
[2016-06-28] MEDS: FIBERSOURCE HN 1,000 ML BOTTLE GT PRN (15:26)
[2016-06-28 16:19] LABS: BASOPHILS % (AUTO) 0.4 % (0.0-2.0); DIFF TOTAL % 100 %; EOSINOPHILS % (AUTO) 0.5 % (0.0-6.0); HEMATOCRIT 28 % (33-45); HEMOGLOBIN 8.9 g/dL (11.5-14.8); LYMPHOCYTES % (AUTO) 19.4 % (20.0-44.0); MEAN CORPUSCULAR HEMOGLOBIN 27 PG (26.0-33.0); MEAN CORPUSCULAR HGB CONC 32 g/dl (31.0-36.0); MEAN CORPUSCULAR VOLUME 84 fL (82-100); MONOCYTES # (AUTO) 0.7 /CMM (0.1-1.30); MONOCYTES % (AUTO) 12.9 % (2.0-12.0); NEUTROPHILS # (AUTO) 3.5 /CMM (1.8-8.9); NEUTROPHILS % (AUTO) 66.8 % (43.0-81.0); PLATELET COUNT (AUTO) 342 /CMM (150-450); RED BLOOD CELL COUNT(AUTO) 3.35 MIL/uL (4.0-5.2); WHITE BLOOD COUNT (AUTO) 5.2 K/uL (4.3-11.0)
[2016-06-29] VITALS (91 sets, daily range): BP systolic 81–159; BP diastolic 44–110
[2016-06-29] MEDS: MORPHINE SULFATE INJ 2 MG/ML DISP.SYRIN IV PRN (03:39)
[2016-06-29] MEDS: FIBERSOURCE HN 1,000 ML BOTTLE GT PRN ×2 (04:56→23:35)
[2016-06-29] MEDS: TEMAZEPAM 15 MG CAPSULE GT PRN (04:56)
[2016-06-29 05:20] LABS: BASOPHILS % (AUTO) 0.5 % (0.0-2.0); DIFF TOTAL % 100 %; EOSINOPHILS % (AUTO) 0.5 % (0.0-6.0); HEMATOCRIT 28 % (33-45); LYMPHOCYTES % (AUTO) 17.8 % (20.0-44.0); MEAN CORPUSCULAR HEMOGLOBIN 27 PG (26.0-33.0); MEAN CORPUSCULAR HGB CONC 32 g/dl (31.0-36.0); MEAN CORPUSCULAR VOLUME 83 fL (82-100); MONOCYTES # (AUTO) 0.7 /CMM (0.1-1.30); MONOCYTES % (AUTO) 12.2 % (2.0-12.0); NEUTROPHILS # (AUTO) 3.9 /CMM (1.8-8.9); PLATELET COUNT (AUTO) 344 /CMM (150-450); RED BLOOD CELL COUNT(AUTO) 3.34 MIL/uL (4.0-5.2); WHITE BLOOD COUNT (AUTO) 5.7 K/uL (4.3-11.0)
[2016-06-29 05:39] LABS: CALCIUM, SERUM 8.7 mg/dL (8.5-10.1); CREATININE 0.3 mg/dL (0.6-1.3); POTASSIUM 3.5 mmol/L (3.5-5.1)
[2016-06-29] MEDS: PIPERACILLIN /TAZOBACTAM 3.375 G in IV D5W 50 ML IV SCH ×4 (05:45→23:36)
[2016-06-29] MEDS: IV NS 0.9% 1,000 ML IV PRN ×2 (07:08→16:26)
[2016-06-29] MEDS: PANTOPRAZOLE 40 MG VIAL IV SCH (08:35)
[2016-06-29] MEDS: ALPRAZOLAM 0.25 MG TABLET GT SCH ×2 (08:35→16:25)
[2016-06-29] MEDS: LACTOBACILLUS RHAMNOSUS GG 1 EACH CAP.SPRINK GT SCH ×2 (08:35→16:25)
[2016-06-29] MEDS: VANCOMYCIN 0.75 GM in IV D5W 250 ML IV SCH ×2 (08:36→21:31)
[2016-06-29] MEDS: PROSOURCE / PROSTAT (PYXIS) 30 ML UDC GT SCH ×2 (08:36→16:25)
[2016-06-29] MEDS: MULTIVITAMINS,THERAPEUTIC 1 UDTAB TABLET GT SCH (08:36)
[2016-06-29] MEDS: BACLOFEN (10 MG) 10 MG TABLET PO SCH ×3 (08:36→16:25)
[2016-06-29] MEDS: ASCORBIC ACID 500 MG TABLET GT SCH (08:36)
[2016-06-29] MEDS: DAKINS HALF STRENGTH (0.25%) 480 ML BOTTLE TOP SCH (08:37)
[2016-06-29] MEDS: Z GUARD REMEDY 2 OZ OINT TP SCH (08:37)
[2016-06-29] MEDS: Magnesium 1GM/D5W 100ML PREMIX 100 ML IV SCH ×2 (12:15→13:35)
[2016-06-30] VITALS (55 sets, daily range): BP systolic 89–145; BP diastolic 49–115
[2016-06-30 04:35] LABS: BASOPHILS % (AUTO) 0.5 % (0.0-2.0); DIFF TOTAL % 100 %; EOSINOPHILS % (AUTO) 0.6 % (0.0-6.0); HEMATOCRIT 24 % (33-45); HEMOGLOBIN 7.8 g/dL (11.5-14.8); LYMPHOCYTES # (AUTO) 0.8 /CMM (0.8-4.8); LYMPHOCYTES % (AUTO) 16.2 % (20.0-44.0); MEAN CORPUSCULAR HEMOGLOBIN 27 PG (26.0-33.0); MEAN CORPUSCULAR HGB CONC 33 g/dl (31.0-36.0); MEAN CORPUSCULAR VOLUME 84 fL (82-100); MONOCYTES # (AUTO) 0.5 /CMM (0.1-1.30); MONOCYTES % (AUTO) 10.8 % (2.0-12.0); NEUTROPHILS # (AUTO) 3.6 /CMM (1.8-8.9); NEUTROPHILS % (AUTO) 71.9 % (43.0-81.0); PLATELET COUNT (AUTO) 319 /CMM (150-450); RED BLOOD CELL COUNT(AUTO) 2.87 MIL/uL (4.0-5.2)
[2016-06-30 05:02] LABS: CALCIUM, SERUM 8.5 mg/dL (8.5-10.1); CREATININE 0.4 mg/dL (0.6-1.3); POTASSIUM 3.4 mmol/L (3.5-5.1)
[2016-06-30] MEDS: PIPERACILLIN /TAZOBACTAM 3.375 G in IV D5W 50 ML IV SCH ×3 (05:06→18:17)
[2016-06-30] MEDS: IV NS 0.9% 1,000 ML IV PRN ×2 (05:55→18:17)
[2016-06-30] MEDS: ASCORBIC ACID 500 MG TABLET GT SCH (08:02)
[2016-06-30] MEDS: PROSOURCE / PROSTAT (PYXIS) 30 ML UDC GT SCH ×2 (08:02→16:44)
[2016-06-30] MEDS: PANTOPRAZOLE 40 MG VIAL IV SCH (08:03)
[2016-06-30] MEDS: MULTIVITAMINS,THERAPEUTIC 1 UDTAB TABLET GT SCH (08:03)
[2016-06-30] MEDS: LACTOBACILLUS RHAMNOSUS GG 1 EACH CAP.SPRINK GT SCH ×2 (08:03→16:44)
[2016-06-30] MEDS: BACLOFEN (10 MG) 10 MG TABLET PO SCH ×3 (08:03→16:44)
[2016-06-30] MEDS: ALPRAZOLAM 0.25 MG TABLET GT SCH ×2 (08:03→16:44)
[2016-06-30] MEDS: MORPHINE SULFATE INJ 2 MG/ML DISP.SYRIN IV PRN ×3 (08:03→16:45)
[2016-06-30] MEDS: VANCOMYCIN 0.75 GM in IV D5W 250 ML IV SCH ×2 (08:18→20:48)
[2016-06-30] MEDS: DAKINS HALF STRENGTH (0.25%) 480 ML BOTTLE TOP SCH (08:26)
[2016-06-30] MEDS: Z GUARD REMEDY 2 OZ OINT TP SCH (08:27)
[2016-06-30] MEDS ORDERED: IV SET PRIMARY PUMP SET 1 EA INFUS.SET MC ONE (09:29)
[2016-06-30] MEDS: POTASSIUM CL. PREMIX PERIPHER. 50 ML IV SCH ×2 (09:32→10:51)
[2016-06-30] MEDS ORDERED: SECONDARY IV SET 1 EA INFUS.SET MC ONE (11:36)
[2016-06-30] MEDS: Magnesium 1GM/D5W 100ML PREMIX 100 ML IV SCH ×2 (11:40→13:24)
[2016-06-30] MEDS: FIBERSOURCE HN 1,000 ML BOTTLE GT PRN (18:17)
[2016-07-01] VITALS (37 sets, daily range): BP systolic 91–117; BP diastolic 48–79
[2016-07-01] MEDS: PIPERACILLIN /TAZOBACTAM 3.375 G in IV D5W 50 ML IV SCH ×5 (00:04→23:45)
[2016-07-01] MEDS: MORPHINE SULFATE INJ 2 MG/ML DISP.SYRIN IV PRN ×5 (00:13→22:54)
[2016-07-01] MEDS: TEMAZEPAM 15 MG CAPSULE GT PRN (00:13)
[2016-07-01] MEDS: ACETAMINOPHEN 650 MG/20.3 ML UDC NG PRN (02:28)
[2016-07-01 04:32] LABS: BASOPHILS % (AUTO) 0.3 % (0.0-2.0); DIFF TOTAL % 100 %; EOSINOPHILS % (AUTO) 0.6 % (0.0-6.0); HEMATOCRIT 22 % (33-45); HEMOGLOBIN 7.3 g/dL (11.5-14.8); LYMPHOCYTES # (AUTO) 0.9 /CMM (0.8-4.8); LYMPHOCYTES % (AUTO) 18.6 % (20.0-44.0); MEAN CORPUSCULAR HEMOGLOBIN 28 PG (26.0-33.0); MEAN CORPUSCULAR HGB CONC 33 g/dl (31.0-36.0); MEAN CORPUSCULAR VOLUME 86 fL (82-100); MONOCYTES # (AUTO) 0.5 /CMM (0.1-1.30); MONOCYTES % (AUTO) 10.8 % (2.0-12.0); NEUTROPHILS # (AUTO) 3.4 /CMM (1.8-8.9); NEUTROPHILS % (AUTO) 69.7 % (43.0-81.0); PLATELET COUNT (AUTO) 295 /CMM (150-450); RED BLOOD CELL COUNT(AUTO) 2.62 MIL/uL (4.0-5.2); WHITE BLOOD COUNT (AUTO) 4.9 K/uL (4.3-11.0)
[2016-07-01 05:18] LABS: CALCIUM, SERUM 7.9 mg/dL (8.5-10.1); CREATININE 0.4 mg/dL (0.6-1.3); POTASSIUM 3.1 mmol/L (3.5-5.1)
[2016-07-01] MEDS: IV NS 0.9% 1,000 ML IV PRN (08:11)
[2016-07-01] MEDS: ASCORBIC ACID 500 MG TABLET GT SCH (08:13)
[2016-07-01] MEDS: LACTOBACILLUS RHAMNOSUS GG 1 EACH CAP.SPRINK GT SCH ×2 (08:13→16:26)
[2016-07-01] MEDS: PANTOPRAZOLE 40 MG VIAL IV SCH (08:13)
[2016-07-01] MEDS: MULTIVITAMINS,THERAPEUTIC 1 UDTAB TABLET GT SCH (08:13)
[2016-07-01] MEDS: PROSOURCE / PROSTAT (PYXIS) 30 ML UDC GT SCH ×2 (08:13→16:25)
[2016-07-01] MEDS: BACLOFEN (10 MG) 10 MG TABLET PO SCH ×3 (08:13→16:26)
[2016-07-01] MEDS: ALPRAZOLAM 0.25 MG TABLET GT SCH ×2 (08:13→16:26)
[2016-07-01] MEDS: Z GUARD REMEDY 2 OZ OINT TP SCH (08:15)
[2016-07-01] MEDS: DAKINS HALF STRENGTH (0.25%) 480 ML BOTTLE TOP SCH (08:15)
[2016-07-01] MEDS: VANCOMYCIN 0.75 GM in IV D5W 250 ML IV SCH ×2 (08:16→20:01)
[2016-07-01] MEDS ORDERED: POTASSIUM CHLORIDE 20 MEQ TAB.PRT.SR PO ONE ×2 (10:30→11:00)
[2016-07-01] MEDS ORDERED: SECONDARY IV SET 1 EA INFUS.SET MC ONE (10:36)
[2016-07-01] MEDS: Magnesium 1GM/D5W 100ML PREMIX 100 ML IV SCH ×4 (10:39→14:05)
[2016-07-01] MEDS: POTASSIUM CHLORIDE 20 MEQ POWDER PACKET GT SCH ×2 (10:58→14:55)
[2016-07-01] MEDS ORDERED: POTASSIUM CHLORIDE 20 MEQ POWDER PACKET GT SCH (11:00)
[2016-07-01] MEDS: FIBERSOURCE HN 1,000 ML BOTTLE GT PRN (17:13)
[2016-07-02] VITALS (35 sets, daily range): BP systolic 96–118; BP diastolic 52–77
[2016-07-02] MEDS: IV NS 0.9% 1,000 ML IV PRN ×2 (02:22→14:26)
[2016-07-02] MEDS: MORPHINE SULFATE INJ 2 MG/ML DISP.SYRIN IV PRN ×3 (02:59→21:20)
[2016-07-02] MEDS: LORAZEPAM INJ 2 MG/ML VIAL IVP PRN (04:51)
[2016-07-02 05:12] LABS: BASOPHILS % (AUTO) 0.6 % (0.0-2.0); DIFF TOTAL % 100 %; EOSINOPHILS % (AUTO) 0.5 % (0.0-6.0); HEMATOCRIT 24 % (33-45); HEMOGLOBIN 7.7 g/dL (11.5-14.8); LYMPHOCYTES # (AUTO) 0.9 /CMM (0.8-4.8); LYMPHOCYTES % (AUTO) 17.7 % (20.0-44.0); MEAN CORPUSCULAR HEMOGLOBIN 27 PG (26.0-33.0); MEAN CORPUSCULAR HGB CONC 32 g/dl (31.0-36.0); MEAN CORPUSCULAR VOLUME 85 fL (82-100); MONOCYTES # (AUTO) 0.6 /CMM (0.1-1.30); MONOCYTES % (AUTO) 11.8 % (2.0-12.0); NEUTROPHILS # (AUTO) 3.6 /CMM (1.8-8.9); NEUTROPHILS % (AUTO) 69.4 % (43.0-81.0); PLATELET COUNT (AUTO) 330 /CMM (150-450); RED BLOOD CELL COUNT(AUTO) 2.84 MIL/uL (4.0-5.2); WHITE BLOOD COUNT (AUTO) 5.2 K/uL (4.3-11.0)
[2016-07-02 05:27] LABS: CALCIUM, SERUM 8.5 mg/dL (8.5-10.1); CREATININE 0.4 mg/dL (0.6-1.3); POTASSIUM 4.2 mmol/L (3.5-5.1)
[2016-07-02] MEDS: PIPERACILLIN /TAZOBACTAM 3.375 G in IV D5W 50 ML IV SCH ×3 (06:12→17:47)
[2016-07-02] MEDS: BACLOFEN (10 MG) 10 MG TABLET PO SCH ×3 (08:21→16:34)
[2016-07-02] MEDS: DAKINS HALF STRENGTH (0.25%) 480 ML BOTTLE TOP SCH (08:21)
[2016-07-02] MEDS: ASCORBIC ACID 500 MG TABLET GT SCH (08:21)
[2016-07-02] MEDS: ALPRAZOLAM 0.25 MG TABLET GT SCH ×2 (08:21→16:35)
[2016-07-02] MEDS: PROSOURCE / PROSTAT (PYXIS) 30 ML UDC GT SCH ×2 (08:21→16:36)
[2016-07-02] MEDS: PANTOPRAZOLE 40 MG VIAL IV SCH (08:21)
[2016-07-02] MEDS: LACTOBACILLUS RHAMNOSUS GG 1 EACH CAP.SPRINK GT SCH ×2 (08:21→16:34)
[2016-07-02] MEDS: MULTIVITAMINS,THERAPEUTIC 1 UDTAB TABLET GT SCH (08:21)
[2016-07-02] MEDS: Z GUARD REMEDY 2 OZ OINT TP SCH (08:22)
[2016-07-02] MEDS: VANCOMYCIN 0.75 GM in IV D5W 250 ML IV SCH ×2 (10:30→20:14)
[2016-07-02] MEDS: FIBERSOURCE HN 1,000 ML BOTTLE GT PRN (12:23)
[2016-07-02] MEDS ORDERED: SILVER NITRATE APPLICATOR 1 EA BOX TP ONE ×2 (12:30)
[2016-07-02] MEDS ORDERED: LIDOCAINE 1%-EPI 1:100,000 20 ML VIAL TP ONE (12:30)
[2016-07-03] VITALS (7 sets, daily range): BP systolic 96–115; BP diastolic 49–78
[2016-07-03] MEDS: PIPERACILLIN /TAZOBACTAM 3.375 G in IV D5W 50 ML IV SCH ×4 (00:20→17:08)
[2016-07-03] MEDS: TEMAZEPAM 15 MG CAPSULE GT PRN (00:32)
[2016-07-03] MEDS: LORAZEPAM INJ 2 MG/ML VIAL IVP PRN ×3 (01:37→20:14)
[2016-07-03] MEDS: MORPHINE SULFATE INJ 2 MG/ML DISP.SYRIN IV PRN ×4 (01:37→12:41)
[2016-07-03] MEDS: FIBERSOURCE HN 1,000 ML BOTTLE GT PRN (02:30)
[2016-07-03] MEDS: IV NS 0.9% 1,000 ML IV PRN (03:34)
[2016-07-03 06:56] LABS: BASOPHILS % (AUTO) 0.6 % (0.0-2.0); DIFF TOTAL % 100 %; EOSINOPHILS % (AUTO) 0.3 % (0.0-6.0); HEMATOCRIT 24 % (33-45); HEMOGLOBIN 7.8 g/dL (11.5-14.8); LYMPHOCYTES # (AUTO) 1.1 /CMM (0.8-4.8); LYMPHOCYTES % (AUTO) 19.2 % (20.0-44.0); MEAN CORPUSCULAR HEMOGLOBIN 28 PG (26.0-33.0); MEAN CORPUSCULAR HGB CONC 33 g/dl (31.0-36.0); MEAN CORPUSCULAR VOLUME 86 fL (82-100); MONOCYTES # (AUTO) 0.7 /CMM (0.1-1.30); MONOCYTES % (AUTO) 12.8 % (2.0-12.0); NEUTROPHILS # (AUTO) 3.8 /CMM (1.8-8.9); NEUTROPHILS % (AUTO) 67.1 % (43.0-81.0); PLATELET COUNT (AUTO) 370 /CMM (150-450); WHITE BLOOD COUNT (AUTO) 5.7 K/uL (4.3-11.0)
[2016-07-03 07:23] LABS: CALCIUM, SERUM 8.4 mg/dL (8.5-10.1); CREATININE 0.4 mg/dL (0.6-1.3); POTASSIUM 3.3 mmol/L (3.5-5.1)
[2016-07-03] MEDS: BACLOFEN (10 MG) 10 MG TABLET PO SCH ×3 (08:39→17:08)
[2016-07-03] MEDS: PROSOURCE / PROSTAT (PYXIS) 30 ML UDC GT SCH ×2 (08:39→17:08)
[2016-07-03] MEDS: ASCORBIC ACID 500 MG TABLET GT SCH (08:39)
[2016-07-03] MEDS: MULTIVITAMINS,THERAPEUTIC 1 UDTAB TABLET GT SCH (08:39)
[2016-07-03] MEDS: ALPRAZOLAM 0.25 MG TABLET GT SCH ×2 (08:39→17:08)
[2016-07-03] MEDS: PANTOPRAZOLE 40 MG VIAL IV SCH (08:39)
[2016-07-03] MEDS: VANCOMYCIN 0.75 GM in IV D5W 250 ML IV SCH ×2 (08:39→20:14)
[2016-07-03] MEDS: LACTOBACILLUS RHAMNOSUS GG 1 EACH CAP.SPRINK GT SCH ×2 (08:39→17:08)
[2016-07-03] MEDS: Z GUARD REMEDY 2 OZ OINT TP SCH (08:40)
[2016-07-03] MEDS: DAKINS HALF STRENGTH (0.25%) 480 ML BOTTLE TOP SCH (08:41)
[2016-07-03] MEDS ORDERED: POTASSIUM CHLORIDE 20 MEQ TAB.PRT.SR PO ONE (10:00)
[2016-07-03] MEDS ORDERED: HYDROMORPHONE 1 MG/1 ML DISP.SYRIN IV PRN (16:00)
[2016-07-03] MEDS: LEVOFLOXACIN (500MG) 500 MG TABLET PO SCH (20:14)
[2016-07-03] MEDS: MORPHINE SULFATE INJ 4 MG/ML DISP.SYRIN IV PRN (21:43)
[2016-07-04] VITALS (7 sets, daily range): BP systolic 81–103; BP diastolic 49–65
[2016-07-04] MEDS ORDERED: IV NS 0.9% 250 ML IV ONE (01:32)
[2016-07-04] MEDS ORDERED: IV SET PRIMARY PUMP SET 1 EA INFUS.SET MC ONE (01:32)
[2016-07-04] MEDS: MORPHINE SULFATE INJ 4 MG/ML DISP.SYRIN IV PRN ×4 (01:41→22:54)
[2016-07-04] MEDS: FIBERSOURCE HN 1,000 ML BOTTLE GT PRN (01:41)
[2016-07-04] MEDS: TEMAZEPAM 15 MG CAPSULE GT PRN (04:25)
[2016-07-04 06:50] LABS: BASOPHILS % (AUTO) 0.6 % (0.0-2.0); DIFF TOTAL % 100 %; EOSINOPHILS % (AUTO) 0.4 % (0.0-6.0); HEMATOCRIT 22 % (33-45); HEMOGLOBIN 7.2 g/dL (11.5-14.8); LYMPHOCYTES # (AUTO) 1.1 /CMM (0.8-4.8); LYMPHOCYTES % (AUTO) 18.8 % (20.0-44.0); MEAN CORPUSCULAR HEMOGLOBIN 28 PG (26.0-33.0); MEAN CORPUSCULAR HGB CONC 33 g/dl (31.0-36.0); MEAN CORPUSCULAR VOLUME 87 fL (82-100); MONOCYTES # (AUTO) 0.7 /CMM (0.1-1.30); MONOCYTES % (AUTO) 12.9 % (2.0-12.0); NEUTROPHILS # (AUTO) 3.8 /CMM (1.8-8.9); NEUTROPHILS % (AUTO) 67.3 % (43.0-81.0); PLATELET COUNT (AUTO) 344 /CMM (150-450); RED BLOOD CELL COUNT(AUTO) 2.54 MIL/uL (4.0-5.2); WHITE BLOOD COUNT (AUTO) 5.6 K/uL (4.3-11.0)
[2016-07-04 07:10] LABS: CALCIUM, SERUM 8.3 mg/dL (8.5-10.1); CREATININE 0.4 mg/dL (0.6-1.3); POTASSIUM 3.2 mmol/L (3.5-5.1)
[2016-07-04 08:02] LABS: THYROID STIMULATING HORMONE 1.239 uIU/mL (0.358-3.74)
[2016-07-04] MEDS ORDERED: SECONDARY IV SET 1 EA INFUS.SET MC ONE (08:05)
[2016-07-04] MEDS: PANTOPRAZOLE 40 MG VIAL IV SCH (08:34)
[2016-07-04] MEDS: ALPRAZOLAM 0.25 MG TABLET GT SCH ×2 (08:34→16:54)
[2016-07-04] MEDS: VANCOMYCIN 0.75 GM in IV D5W 250 ML IV SCH ×2 (08:34→22:42)
[2016-07-04] MEDS: LACTOBACILLUS RHAMNOSUS GG 1 EACH CAP.SPRINK GT SCH ×2 (08:34→16:54)
[2016-07-04] MEDS: ASCORBIC ACID 500 MG TABLET GT SCH (08:34)
[2016-07-04] MEDS: MULTIVITAMINS,THERAPEUTIC 1 UDTAB TABLET GT SCH (08:34)
[2016-07-04] MEDS: PROSOURCE / PROSTAT (PYXIS) 30 ML UDC GT SCH ×2 (08:34→16:54)
[2016-07-04] MEDS: BACLOFEN (10 MG) 10 MG TABLET PO SCH ×3 (08:34→16:54)
[2016-07-04] MEDS: DAKINS HALF STRENGTH (0.25%) 480 ML BOTTLE TOP SCH (08:35)
[2016-07-04] MEDS: Z GUARD REMEDY 2 OZ OINT TP SCH (08:35)
[2016-07-04] MEDS ORDERED: POTASSIUM CHLORIDE 20 MEQ POWDER PACKET GT ONE (11:00)
[2016-07-04] MEDS: LEVOFLOXACIN (500MG) 500 MG TABLET PO SCH (22:38)
[2016-07-05] VITALS (8 sets, daily range): BP systolic 87–112; BP diastolic 56–68
[2016-07-05 07:32] LABS: CALCIUM, SERUM 8.1 mg/dL (8.5-10.1); CREATININE 0.5 mg/dL (0.6-1.3); POTASSIUM 3.9 mmol/L (3.5-5.1)
[2016-07-05] MEDS: PANTOPRAZOLE 40 MG VIAL IV SCH (09:42)
[2016-07-05] MEDS: ASCORBIC ACID 500 MG TABLET GT SCH (09:42)
[2016-07-05] MEDS: BACLOFEN (10 MG) 10 MG TABLET PO SCH ×3 (09:42→17:31)
[2016-07-05] MEDS: FERROUS SULFATE (325 MG) 325 MG/TAB TABLET PO SCH ×2 (09:42→17:31)
[2016-07-05] MEDS: LACTOBACILLUS RHAMNOSUS GG 1 EACH CAP.SPRINK GT SCH ×2 (09:42→17:31)
[2016-07-05] MEDS: PROSOURCE / PROSTAT (PYXIS) 30 ML UDC GT SCH ×2 (09:43→17:31)
[2016-07-05] MEDS: ALPRAZOLAM 0.25 MG TABLET GT SCH ×2 (09:43→17:31)
[2016-07-05] MEDS: MULTIVITAMINS,THERAPEUTIC 1 UDTAB TABLET GT SCH (09:43)
[2016-07-05] MEDS: DAKINS HALF STRENGTH (0.25%) 480 ML BOTTLE TOP SCH (09:45)
[2016-07-05] MEDS: Z GUARD REMEDY 2 OZ OINT TP SCH (09:46)
[2016-07-05] MEDS: VANCOMYCIN 0.75 GM in IV D5W 250 ML IV SCH (09:47)
[2016-07-05] MEDS: MORPHINE SULFATE INJ 4 MG/ML DISP.SYRIN IV PRN (14:43)
[2016-07-05] MEDS ORDERED: IV NS 0.9% 500 ML IV ONE ×4 (19:22→22:39)
[2016-07-05] MEDS ORDERED: IV SET PRIMARY PUMP SET 1 EA INFUS.SET MC ONE (19:25)
[2016-07-05] MEDS: LEVOFLOXACIN (500MG) 500 MG TABLET PO SCH (19:44)
[2016-07-05] MEDS ORDERED: IV NS 0.9% 1,000 ML BAG IV PRN (22:30)
[2016-07-06] VITALS: BP 91/50
[2016-07-06] MEDS: FIBERSOURCE HN 1,000 ML BOTTLE GT PRN ×2 (03:33→20:20)
[2016-07-06 04:00] VITALS: BP 115/69
[2016-07-06 07:04] LABS: CALCIUM, SERUM 8.1 mg/dL (8.5-10.1); CREATININE 0.4 mg/dL (0.6-1.3); POTASSIUM 3.2 mmol/L (3.5-5.1)
[2016-07-06 08:00] VITALS: BP 127/84
[2016-07-06] MEDS: BACLOFEN (10 MG) 10 MG TABLET PO SCH ×3 (08:29→16:16)
[2016-07-06] MEDS: PROSOURCE / PROSTAT (PYXIS) 30 ML UDC GT SCH ×2 (08:29→16:17)
[2016-07-06] MEDS: ALPRAZOLAM 0.25 MG TABLET GT SCH ×2 (08:29→16:16)
[2016-07-06] MEDS: PANTOPRAZOLE 40 MG VIAL IV SCH (08:29)
[2016-07-06] MEDS: FERROUS SULFATE (325 MG) 325 MG/TAB TABLET PO SCH ×2 (08:29→16:16)
[2016-07-06] MEDS: LACTOBACILLUS RHAMNOSUS GG 1 EACH CAP.SPRINK GT SCH ×2 (08:29→16:16)
[2016-07-06] MEDS: ASCORBIC ACID 500 MG TABLET GT SCH (08:29)
[2016-07-06] MEDS: MULTIVITAMINS,THERAPEUTIC 1 UDTAB TABLET GT SCH (08:29)
[2016-07-06] MEDS: Z GUARD REMEDY 2 OZ OINT TP SCH (08:30)
[2016-07-06] MEDS: DAKINS HALF STRENGTH (0.25%) 480 ML BOTTLE TOP SCH (08:30)
[2016-07-06 12:00] VITALS: BP 108/64
[2016-07-06 12:20] LABS: *HGBFR CHEMOGLOBIN SOLUBILITY Negative (Negative)
[2016-07-06] MEDS: VANCOMYCIN 1 GM in IV D5W 250 ML IV SCH (13:12)
[2016-07-06] MEDS: MORPHINE SULFATE INJ 2 MG/ML DISP.SYRIN IM PRN ×2 (13:18→22:22)
[2016-07-06] MEDS: POTASSIUM CHLORIDE 20 MEQ TAB.PRT.SR PO SCH ×2 (14:46→16:16)
[2016-07-06 16:00] VITALS: BP 99/67
[2016-07-06] MEDS: IV NS 0.9% 1,000 ML BAG IV PRN (16:18)
[2016-07-06 20:00] VITALS: BP 120/80
[2016-07-06] MEDS: LEVOFLOXACIN (500MG) 500 MG TABLET PO SCH (20:00)
[2016-07-07] VITALS: BP_SYST 94; BP_DIAS 39; BP_DIAS 59
[2016-07-07] MEDS: TEMAZEPAM 15 MG CAPSULE GT PRN (00:39)
[2016-07-07] MEDS: MORPHINE SULFATE INJ 4 MG/ML DISP.SYRIN IV PRN (03:21)
[2016-07-07 04:00] VITALS: BP 96/50
[2016-07-07] MEDS: IV NS 0.9% 1,000 ML BAG IV PRN (05:24)
[2016-07-07 06:15] LABS: BASOPHILS % (AUTO) 0.4 % (0.0-2.0); DIFF TOTAL % 100 %; EOSINOPHILS % (AUTO) 0.3 % (0.0-6.0); HEMATOCRIT 22 % (33-45); HEMOGLOBIN 7.3 g/dL (11.5-14.8); LYMPHOCYTES # (AUTO) 0.6 /CMM (0.8-4.8); LYMPHOCYTES % (AUTO) 10.2 % (20.0-44.0); MEAN CORPUSCULAR HEMOGLOBIN 28 PG (26.0-33.0); MEAN CORPUSCULAR HGB CONC 33 g/dl (31.0-36.0); MEAN CORPUSCULAR VOLUME 86 fL (82-100); MONOCYTES # (AUTO) 0.7 /CMM (0.1-1.30); MONOCYTES % (AUTO) 11.4 % (2.0-12.0); NEUTROPHILS # (AUTO) 4.9 /CMM (1.8-8.9); NEUTROPHILS % (AUTO) 77.7 % (43.0-81.0); PLATELET COUNT (AUTO) 388 /CMM (150-450); RED BLOOD CELL COUNT(AUTO) 2.61 MIL/uL (4.0-5.2); WHITE BLOOD COUNT (AUTO) 6.3 K/uL (4.3-11.0)
[2016-07-07 06:30] LABS: CALCIUM, SERUM 8.3 mg/dL (8.5-10.1); CREATININE 0.4 mg/dL (0.6-1.3); POTASSIUM 4.2 mmol/L (3.5-5.1)
[2016-07-07 08:00] VITALS: BP 88/49
[2016-07-07] MEDS: ALPRAZOLAM 0.25 MG TABLET GT SCH ×2 (09:00→17:00)
[2016-07-07] MEDS: BACLOFEN (10 MG) 10 MG TABLET PO SCH ×3 (09:42→18:41)
[2016-07-07] MEDS: PROSOURCE / PROSTAT (PYXIS) 30 ML UDC GT SCH ×2 (09:42→18:41)
[2016-07-07] MEDS: FERROUS SULFATE (325 MG) 325 MG/TAB TABLET PO SCH ×2 (09:43→18:41)
[2016-07-07] MEDS: PANTOPRAZOLE 40 MG VIAL IV SCH (09:43)
[2016-07-07] MEDS: ASCORBIC ACID 500 MG TABLET GT SCH (09:43)
[2016-07-07] MEDS: LACTOBACILLUS RHAMNOSUS GG 1 EACH CAP.SPRINK GT SCH ×2 (09:43→18:41)
[2016-07-07] MEDS: MULTIVITAMINS,THERAPEUTIC 1 UDTAB TABLET GT SCH (09:43)
[2016-07-07] MEDS: ACETAMINOPHEN 650 MG/20.3 ML UDC NG PRN ×2 (09:43→19:15)
[2016-07-07] MEDS: DAKINS HALF STRENGTH (0.25%) 480 ML BOTTLE TOP SCH (09:48)
[2016-07-07] MEDS: Z GUARD REMEDY 2 OZ OINT TP SCH (09:49)
[2016-07-07 12:00] VITALS: BP 90/57
[2016-07-07] MEDS: VANCOMYCIN 1 GM in IV D5W 250 ML IV SCH (14:04)
[2016-07-07 16:00] VITALS: BP 89/53
[2016-07-07] MEDS: LEVOFLOXACIN (500MG) 500 MG TABLET PO SCH (19:00)
[2016-07-07] MEDS ORDERED: IV NS 0.9% 500 ML IV ONE (19:30)
[2016-07-07 20:00] VITALS: BP_SYST 153; BP_SYST 92; BP_DIAS 58; BP_DIAS 62
[2016-07-08] VITALS: BP 92/58
[2016-07-08] MEDS: TEMAZEPAM 15 MG CAPSULE GT PRN (00:51)
[2016-07-08] MEDS: MORPHINE SULFATE INJ 2 MG/ML DISP.SYRIN IM PRN (03:45)
[2016-07-08] MEDS: FIBERSOURCE HN 1,000 ML BOTTLE GT PRN (03:45)
[2016-07-08 04:00] VITALS: BP 111/72
[2016-07-08 07:04] LABS: CALCIUM, SERUM 7.8 mg/dL (8.5-10.1); CREATININE 0.4 mg/dL (0.6-1.3); POTASSIUM 3.2 mmol/L (3.5-5.1)
[2016-07-08 08:00] VITALS: BP_SYST 84; BP_SYST 86; BP_DIAS 35; BP_DIAS 50
[2016-07-08] MEDS: ALPRAZOLAM 0.25 MG TABLET GT SCH ×2 (09:00→17:00)
[2016-07-08] MEDS ORDERED: IV NS 0.9% 500 ML IV ONE (09:30)
[2016-07-08] MEDS ORDERED: IV SET PRIMARY PUMP SET 1 EA INFUS.SET MC ONE (10:13)
[2016-07-08] MEDS: PROSOURCE / PROSTAT (PYXIS) 30 ML UDC GT SCH ×2 (10:25→16:52)
[2016-07-08] MEDS: FERROUS SULFATE (325 MG) 325 MG/TAB TABLET PO SCH ×2 (10:25→16:52)
[2016-07-08] MEDS: oxyCODONE/APAP (5/325 MG) 1 UDTAB TABLET GT PRN ×2 (10:25→16:52)
[2016-07-08] MEDS: ASCORBIC ACID 500 MG TABLET GT SCH (10:25)
[2016-07-08] MEDS: BACLOFEN (10 MG) 10 MG TABLET PO SCH ×3 (10:25→16:52)
[2016-07-08] MEDS: PANTOPRAZOLE 40 MG VIAL IV SCH (10:25)
[2016-07-08] MEDS: LACTOBACILLUS RHAMNOSUS GG 1 EACH CAP.SPRINK GT SCH ×2 (10:26→16:52)
[2016-07-08] MEDS: MULTIVITAMINS,THERAPEUTIC 1 UDTAB TABLET GT SCH (10:26)
[2016-07-08] MEDS: DAKINS HALF STRENGTH (0.25%) 480 ML BOTTLE TOP SCH (10:49)
[2016-07-08] MEDS: Z GUARD REMEDY 2 OZ OINT TP SCH (10:50)
[2016-07-08 12:00] VITALS: BP 94/57
[2016-07-08] MEDS ORDERED: POTASSIUM PHOSPHATE MM 15 MMOL in IV D5W 250 ML IV SCH (12:30)
[2016-07-08] MEDS ORDERED: POTASSIUM CHLORIDE 20 MEQ POWDER PACKET GT SCH (12:30)
[2016-07-08] MEDS ORDERED: SECONDARY IV SET 1 EA INFUS.SET MC ONE ×3 (13:41→19:17)
[2016-07-08] MEDS: Magnesium 1GM/D5W 100ML PREMIX 100 ML IV SCH ×2 (14:11→15:53)
[2016-07-08] MEDS: VANCOMYCIN 1 GM in IV D5W 250 ML IV SCH (15:54)
[2016-07-08 16:00] VITALS: BP 107/69
[2016-07-08] MEDS: LEVOFLOXACIN (500MG) 500 MG TABLET PO SCH (19:25)
[2016-07-08 20:00] VITALS: BP_SYST 100; BP_SYST 101; BP_DIAS 101; BP_DIAS 63
[2016-07-08] MEDS: MORPHINE SULFATE INJ 4 MG/ML DISP.SYRIN IV PRN (21:46)
[2016-07-09] VITALS (12 sets, daily range): BP systolic 86–105; BP diastolic 48–66
[2016-07-09] MEDS: TEMAZEPAM 15 MG CAPSULE GT PRN (00:48)
[2016-07-09] MEDS: MORPHINE SULFATE INJ 4 MG/ML DISP.SYRIN IV PRN ×2 (05:27→20:40)
[2016-07-09 06:14] LABS: BASOPHILS % (AUTO) 0.6 % (0.0-2.0); DIFF TOTAL % 100 %; EOSINOPHILS % (AUTO) 0.8 % (0.0-6.0); HEMATOCRIT 22 % (33-45); LYMPHOCYTES # (AUTO) 1.2 /CMM (0.8-4.8); LYMPHOCYTES % (AUTO) 20.2 % (20.0-44.0); MEAN CORPUSCULAR HEMOGLOBIN 27 PG (26.0-33.0); MEAN CORPUSCULAR HGB CONC 32 g/dl (31.0-36.0); MEAN CORPUSCULAR VOLUME 85 fL (82-100); MONOCYTES # (AUTO) 0.7 /CMM (0.1-1.30); MONOCYTES % (AUTO) 11.3 % (2.0-12.0); NEUTROPHILS # (AUTO) 3.9 /CMM (1.8-8.9); NEUTROPHILS % (AUTO) 67.1 % (43.0-81.0); PLATELET COUNT (AUTO) 483 /CMM (150-450); RED BLOOD CELL COUNT(AUTO) 2.62 MIL/uL (4.0-5.2); WHITE BLOOD COUNT (AUTO) 5.9 K/uL (4.3-11.0)
[2016-07-09 06:22] LABS: CALCIUM, SERUM 8.1 mg/dL (8.5-10.1); CREATININE 0.4 mg/dL (0.6-1.3); PHOSPHORUS 3.4 mg/dL (2.5-4.9); POTASSIUM 3.3 mmol/L (3.5-5.1)
[2016-07-09] MEDS: BACLOFEN (10 MG) 10 MG TABLET PO SCH ×3 (09:08→16:38)
[2016-07-09] MEDS: FERROUS SULFATE (325 MG) 325 MG/TAB TABLET PO SCH ×2 (09:08→16:38)
[2016-07-09] MEDS: ALPRAZOLAM 0.25 MG TABLET GT SCH ×2 (09:08→16:38)
[2016-07-09] MEDS: LACTOBACILLUS RHAMNOSUS GG 1 EACH CAP.SPRINK GT SCH ×2 (09:08→16:38)
[2016-07-09] MEDS: ASCORBIC ACID 500 MG TABLET GT SCH (09:08)
[2016-07-09] MEDS: PROSOURCE / PROSTAT (PYXIS) 30 ML UDC GT SCH ×2 (09:08→16:38)
[2016-07-09] MEDS: PANTOPRAZOLE 40 MG VIAL IV SCH (09:08)
[2016-07-09] MEDS: MULTIVITAMINS,THERAPEUTIC 1 UDTAB TABLET GT SCH (09:08)
[2016-07-09] MEDS: DAKINS HALF STRENGTH (0.25%) 480 ML BOTTLE TOP SCH (09:09)
[2016-07-09] MEDS: Z GUARD REMEDY 2 OZ OINT TP SCH (09:09)
[2016-07-09] MEDS: oxyCODONE/APAP (5/325 MG) 1 UDTAB TABLET GT PRN (09:26)
[2016-07-09] MEDS ORDERED: HYDROMORPHONE 1 MG/1 ML DISP.SYRIN IV ONE (13:30)
[2016-07-09] MEDS ORDERED: Magnesium 1 GM/2 ML VIAL IV ONE (13:30)
[2016-07-09] MEDS ORDERED: POTASSIUM CHLORIDE 20 MEQ TAB.PRT.SR PO ONE (13:30)
[2016-07-09] MEDS: VANCOMYCIN 1 GM in IV D5W 250 ML IV SCH (14:25)
[2016-07-09] MEDS ORDERED: IV SET PRIMARY PUMP SET 1 EA INFUS.SET MC ONE ×2 (14:57→18:29)
[2016-07-09] MEDS ORDERED: SECONDARY IV SET 1 EA INFUS.SET MC ONE (14:57)
[2016-07-09] MEDS: Magnesium 1GM/D5W 100ML PREMIX 100 ML IV SCH ×2 (15:00→16:34)
[2016-07-09] MEDS: diphenhydrAMINE HCL 50 MG/ML VIAL IV PRN (15:37)
[2016-07-09] MEDS: IV NS 0.9% 1,000 ML BAG IV PRN (18:34)
[2016-07-09] MEDS: LEVOFLOXACIN (500MG) 500 MG TABLET PO SCH (18:35)
[2016-07-09] MEDS ORDERED: IV NS 0.9% 250 ML IV ONE (22:13)
[2016-07-09] MEDS ORDERED: BLOOD IV SET 1 EA INFUS.SET MC ONE (22:13)
[2016-07-10] VITALS (10 sets, daily range): BP systolic 94–129; BP diastolic 55–79
[2016-07-10] MEDS: MORPHINE SULFATE INJ 4 MG/ML DISP.SYRIN IV PRN ×5 (00:47→21:27)
[2016-07-10] MEDS: diphenhydrAMINE HCL 50 MG/ML VIAL IV PRN ×4 (02:03→23:51)
[2016-07-10 07:09] LABS: BASOPHILS % (AUTO) 0.3 % (0.0-2.0); DIFF TOTAL % 100 %; EOSINOPHILS % (AUTO) 0.4 % (0.0-6.0); HEMATOCRIT 26 % (33-45); HEMOGLOBIN 8.3 g/dL (11.5-14.8); LYMPHOCYTES # (AUTO) 1.2 /CMM (0.8-4.8); LYMPHOCYTES % (AUTO) 15.3 % (20.0-44.0); MEAN CORPUSCULAR HEMOGLOBIN 27 PG (26.0-33.0); MEAN CORPUSCULAR HGB CONC 32 g/dl (31.0-36.0); MEAN CORPUSCULAR VOLUME 85 fL (82-100); MONOCYTES % (AUTO) 13.2 % (2.0-12.0); NEUTROPHILS # (AUTO) 5.4 /CMM (1.8-8.9); NEUTROPHILS % (AUTO) 70.8 % (43.0-81.0); PLATELET COUNT (AUTO) 506 /CMM (150-450); RED BLOOD CELL COUNT(AUTO) 3.05 MIL/uL (4.0-5.2); WHITE BLOOD COUNT (AUTO) 7.6 K/uL (4.3-11.0)
[2016-07-10 07:11] LABS: CALCIUM, SERUM 8.1 mg/dL (8.5-10.1); CREATININE 0.4 mg/dL (0.6-1.3); POTASSIUM 3.6 mmol/L (3.5-5.1)
[2016-07-10] MEDS: IV NS 0.9% 1,000 ML BAG IV PRN ×2 (07:30→22:39)
[2016-07-10] MEDS: PANTOPRAZOLE 40 MG VIAL IV SCH (08:45)
[2016-07-10] MEDS: MULTIVITAMINS,THERAPEUTIC 1 UDTAB TABLET GT SCH (08:45)
[2016-07-10] MEDS: PROSOURCE / PROSTAT (PYXIS) 30 ML UDC GT SCH ×2 (08:45→17:34)
[2016-07-10] MEDS: ACETAMINOPHEN 650 MG/20.3 ML UDC NG PRN (08:45)
[2016-07-10] MEDS: ASCORBIC ACID 500 MG TABLET GT SCH (08:45)
[2016-07-10] MEDS: FERROUS SULFATE (325 MG) 325 MG/TAB TABLET PO SCH ×2 (08:45→17:34)
[2016-07-10] MEDS: BACLOFEN (10 MG) 10 MG TABLET PO SCH ×3 (08:46→17:34)
[2016-07-10] MEDS: Z GUARD REMEDY 2 OZ OINT TP SCH (08:46)
[2016-07-10] MEDS: ALPRAZOLAM 0.25 MG TABLET GT SCH ×2 (08:46→17:34)
[2016-07-10] MEDS: LACTOBACILLUS RHAMNOSUS GG 1 EACH CAP.SPRINK GT SCH ×2 (08:46→17:34)
[2016-07-10] MEDS: DAKINS HALF STRENGTH (0.25%) 480 ML BOTTLE TOP SCH (08:46)
[2016-07-10] MEDS: VANCOMYCIN 1 GM in IV D5W 250 ML IV SCH (13:08)
[2016-07-10] MEDS: ONDANSETRON HCL/PF 4 MG/2 ML VIAL IV PRN (13:53)
[2016-07-10] MEDS: LEVOFLOXACIN (500MG) 500 MG TABLET PO SCH (20:06)
[2016-07-11] VITALS (7 sets, daily range): BP systolic 90–119; BP diastolic 59–79
[2016-07-11] MEDS: TEMAZEPAM 15 MG CAPSULE GT PRN (02:12)
[2016-07-11] MEDS: MORPHINE SULFATE INJ 4 MG/ML DISP.SYRIN IV PRN ×4 (05:39→21:05)
[2016-07-11] MEDS: FIBERSOURCE HN 1,000 ML BOTTLE GT PRN (05:39)
[2016-07-11 07:19] LABS: CALCIUM, SERUM 8.1 mg/dL (8.5-10.1); CREATININE 0.4 mg/dL (0.6-1.3); POTASSIUM 3.4 mmol/L (3.5-5.1)
[2016-07-11] MEDS: PROSOURCE / PROSTAT (PYXIS) 30 ML UDC GT SCH ×2 (08:45→16:30)
[2016-07-11] MEDS: ASCORBIC ACID 500 MG TABLET GT SCH (08:45)
[2016-07-11] MEDS: MULTIVITAMINS,THERAPEUTIC 1 UDTAB TABLET GT SCH (08:45)
[2016-07-11] MEDS: LACTOBACILLUS RHAMNOSUS GG 1 EACH CAP.SPRINK GT SCH ×2 (08:45→16:30)
[2016-07-11] MEDS: FERROUS SULFATE (325 MG) 325 MG/TAB TABLET PO SCH ×2 (08:45→16:30)
[2016-07-11] MEDS: BACLOFEN (10 MG) 10 MG TABLET PO SCH ×3 (08:45→16:30)
[2016-07-11] MEDS: diphenhydrAMINE HCL 50 MG/ML VIAL IV PRN ×4 (08:45→22:37)
[2016-07-11] MEDS: PANTOPRAZOLE 40 MG VIAL IV SCH (08:45)
[2016-07-11] MEDS: ALPRAZOLAM 0.25 MG TABLET GT SCH ×2 (08:45→16:30)
[2016-07-11] MEDS: Z GUARD REMEDY 2 OZ OINT TP SCH (08:53)
[2016-07-11] MEDS: DAKINS HALF STRENGTH (0.25%) 480 ML BOTTLE TOP SCH (08:53)
[2016-07-11] MEDS: MORPHINE SULFATE INJ 2 MG/ML DISP.SYRIN IM PRN (09:01)
[2016-07-11] MEDS ORDERED: SECONDARY IV SET 1 EA INFUS.SET MC ONE ×2 (12:32→21:08)
[2016-07-11] MEDS: IV NS 0.9% 1,000 ML BAG IV PRN (12:40)
[2016-07-11] MEDS: POTASSIUM CL. PREMIX PERIPHER. 50 ML IV SCH ×2 (12:40→16:31)
[2016-07-11] MEDS: VANCOMYCIN 1 GM in IV D5W 250 ML IV SCH (14:38)
[2016-07-11 16:18] LABS: ABG BASE EXCESS -5.1 mmol/L; ABG HCO3 19.3 mmol/L; ABG PCO2 32.9 mmHg (35.0-45.0); ABG PH 7.386 (7.350-7.450); ABG PO2 96.2 mmHg (75.0-100.0); ABG TOTAL HEMOGLOBIN 8.4 G/dL (12.0-16.0); ALLEN TEST Pass; O2Hb 94.6 % (94.0-97.0)
[2016-07-11] MEDS ORDERED: COLISTIMETHATE SODIUM 75 MG in IV NS 0.9% 50 ML IV SCH (17:30)
[2016-07-11] MEDS: METRONIDAZOLE 500 MG TABLET GT SCH (21:05)
[2016-07-11] MEDS: COLISTIMETHATE SODIUM 100 MG in IV NS 0.9% 50 ML IV SCH (21:05)
[2016-07-11] MEDS: ONDANSETRON HCL/PF 4 MG/2 ML VIAL IV PRN (23:14)
[2016-07-12] VITALS: BP_SYST 90; BP_SYST 93; BP_DIAS 59
[2016-07-12] MEDS: MORPHINE SULFATE INJ 4 MG/ML DISP.SYRIN IV PRN (01:36)
[2016-07-12 04:00] VITALS: BP 97/64
[2016-07-12] MEDS: MORPHINE SULFATE INJ 2 MG/ML DISP.SYRIN IM PRN ×4 (04:38→22:51)
[2016-07-12] MEDS: METRONIDAZOLE 500 MG TABLET GT SCH ×3 (06:25→22:05)
[2016-07-12 07:30] LABS: CALCIUM, SERUM 8.3 mg/dL (8.5-10.1); CREATININE 0.3 mg/dL (0.6-1.3); POTASSIUM 3.6 mmol/L (3.5-5.1)
[2016-07-12 08:00] VITALS: BP 102/56
[2016-07-12] MEDS: MULTIVITAMINS,THERAPEUTIC 1 UDTAB TABLET GT SCH (08:25)
[2016-07-12] MEDS: PROSOURCE / PROSTAT (PYXIS) 30 ML UDC GT SCH ×2 (08:25→18:17)
[2016-07-12] MEDS: LACTOBACILLUS RHAMNOSUS GG 1 EACH CAP.SPRINK GT SCH ×2 (08:25→18:19)
[2016-07-12] MEDS: FERROUS SULFATE (325 MG) 325 MG/TAB TABLET PO SCH ×2 (08:25→18:19)
[2016-07-12] MEDS: PANTOPRAZOLE 40 MG VIAL IV SCH (08:25)
[2016-07-12] MEDS: BACLOFEN (10 MG) 10 MG TABLET PO SCH ×3 (08:26→18:17)
[2016-07-12] MEDS: ALPRAZOLAM 0.25 MG TABLET GT SCH ×2 (08:26→18:17)
[2016-07-12] MEDS: diphenhydrAMINE HCL 50 MG/ML VIAL IV PRN ×2 (08:26→22:51)
[2016-07-12] MEDS: ASCORBIC ACID 500 MG TABLET GT SCH (08:26)
[2016-07-12] MEDS: Z GUARD REMEDY 2 OZ OINT TP SCH (08:27)
[2016-07-12] MEDS: DAKINS HALF STRENGTH (0.25%) 480 ML BOTTLE TOP SCH (08:27)
[2016-07-12] MEDS: COLISTIMETHATE SODIUM 100 MG in IV NS 0.9% 50 ML IV SCH ×2 (09:57→22:05)
[2016-07-12 12:00] VITALS: BP 104/71
[2016-07-12] MEDS: ACETAMINOPHEN 650 MG/20.3 ML UDC NG PRN (12:45)
[2016-07-12 16:00] VITALS: BP 113/65
[2016-07-12 20:00] VITALS: BP 108/71
[2016-07-13] VITALS: BP 109/74
[2016-07-13] MEDS: diphenhydrAMINE HCL 50 MG/ML VIAL IV PRN ×3 (03:06→20:47)
[2016-07-13] MEDS: MORPHINE SULFATE INJ 2 MG/ML DISP.SYRIN IM PRN ×3 (03:08→20:19)
[2016-07-13] MEDS: TEMAZEPAM 15 MG CAPSULE GT PRN (03:15)
[2016-07-13 04:00] VITALS: BP 92/48
[2016-07-13] MEDS: METRONIDAZOLE 500 MG TABLET GT SCH ×3 (04:22→20:19)
[2016-07-13] MEDS: PANTOPRAZOLE 40 MG VIAL IV SCH (08:12)
[2016-07-13] MEDS: COLISTIMETHATE SODIUM 100 MG in IV NS 0.9% 50 ML IV SCH ×2 (08:18→20:19)
[2016-07-13 08:59] LABS: BASOPHILS % (AUTO) 0.4 % (0.0-2.0); DIFF TOTAL % 100 %; EOSINOPHILS # (AUTO) 0.1 /CMM (0.0-0.7); EOSINOPHILS % (AUTO) 0.6 % (0.0-6.0); HEMATOCRIT 23 % (33-45); HEMOGLOBIN 7.4 g/dL (11.5-14.8); LYMPHOCYTES # (AUTO) 1.2 /CMM (0.8-4.8); LYMPHOCYTES % (AUTO) 12.7 % (20.0-44.0); MEAN CORPUSCULAR HEMOGLOBIN 28 PG (26.0-33.0); MEAN CORPUSCULAR HGB CONC 32 g/dl (31.0-36.0); MEAN CORPUSCULAR VOLUME 85 fL (82-100); MONOCYTES # (AUTO) 1.3 /CMM (0.1-1.30); MONOCYTES % (AUTO) 13.5 % (2.0-12.0); NEUTROPHILS # (AUTO) 6.8 /CMM (1.8-8.9); NEUTROPHILS % (AUTO) 72.8 % (43.0-81.0); PLATELET COUNT (AUTO) 566 /CMM (150-450); RED BLOOD CELL COUNT(AUTO) 2.69 MIL/uL (4.0-5.2); RETICULOCYTE COUNT 2.6 % (0.6-2.5); WHITE BLOOD COUNT (AUTO) 9.4 K/uL (4.3-11.0)
[2016-07-13] MEDS: PROSOURCE / PROSTAT (PYXIS) 30 ML UDC GT SCH ×2 (09:00→17:00)
[2016-07-13] MEDS: BACLOFEN (10 MG) 10 MG TABLET PO SCH ×3 (09:00→17:00)
[2016-07-13] MEDS: MULTIVITAMINS,THERAPEUTIC 1 UDTAB TABLET GT SCH (09:00)
[2016-07-13] MEDS: ASCORBIC ACID 500 MG TABLET GT SCH (09:00)
[2016-07-13] MEDS: ALPRAZOLAM 0.25 MG TABLET GT SCH ×2 (09:00→17:00)
[2016-07-13] MEDS: LACTOBACILLUS RHAMNOSUS GG 1 EACH CAP.SPRINK GT SCH ×2 (09:00→17:00)
[2016-07-13] MEDS: DAKINS HALF STRENGTH (0.25%) 480 ML BOTTLE TOP SCH (09:00)
[2016-07-13] MEDS: Z GUARD REMEDY 2 OZ OINT TP SCH (09:00)
[2016-07-13] MEDS: FERROUS SULFATE (325 MG) 325 MG/TAB TABLET PO SCH ×2 (09:00→17:00)
[2016-07-13 09:08] LABS: CALCIUM, SERUM 7.8 mg/dL (8.5-10.1); CREATININE 0.3 mg/dL (0.6-1.3); POTASSIUM 3.5 mmol/L (3.5-5.1)
[2016-07-13 14:16] LABS: ABG BASE EXCESS -1.8 mmol/L; ABG HCO3 22.1 mmol/L; ABG PCO2 33.7 mmHg (35.0-45.0); ABG PH 7.434 (7.350-7.450); ABG TOTAL HEMOGLOBIN 8.1 G/dL (12.0-16.0); ALLEN TEST Pass; AaDO2 108.4 mmHg; O2Hb 96.5 % (94.0-97.0)
[2016-07-13] MEDS: MORPHINE SULFATE INJ 4 MG/ML DISP.SYRIN IV PRN (16:06)
[2016-07-13] MEDS: IV NS 0.9% 1,000 ML BAG IV PRN (16:09)
[2016-07-13 20:00] VITALS: BP 90/56
[2016-07-14] VITALS: BP 98/65
[2016-07-14] MEDS: TEMAZEPAM 15 MG CAPSULE GT PRN ×2 (00:37→23:43)
[2016-07-14] MEDS: MORPHINE SULFATE INJ 2 MG/ML DISP.SYRIN IM PRN ×2 (00:37→04:36)
[2016-07-14] MEDS: diphenhydrAMINE HCL 50 MG/ML VIAL IV PRN ×2 (02:06→09:55)
[2016-07-14 04:00] VITALS: BP 96/60
[2016-07-14] MEDS: METRONIDAZOLE 500 MG TABLET GT SCH ×3 (05:51→21:56)
[2016-07-14 07:42] LABS: CREATININE 0.4 mg/dL (0.6-1.3); POTASSIUM 3.3 mmol/L (3.5-5.1)
[2016-07-14 08:00] VITALS: BP 87/52
[2016-07-14] MEDS: ALPRAZOLAM 0.25 MG TABLET GT SCH ×2 (09:00→17:00)
[2016-07-14] MEDS: COLISTIMETHATE SODIUM 100 MG in IV NS 0.9% 50 ML IV SCH ×2 (09:04→21:57)
[2016-07-14] MEDS: PROSOURCE / PROSTAT (PYXIS) 30 ML UDC GT SCH ×2 (09:05→17:18)
[2016-07-14] MEDS: PANTOPRAZOLE 40 MG VIAL IV SCH (09:05)
[2016-07-14] MEDS: MULTIVITAMINS,THERAPEUTIC 1 UDTAB TABLET GT SCH (09:05)
[2016-07-14] MEDS: BACLOFEN (10 MG) 10 MG TABLET PO SCH ×3 (09:05→17:19)
[2016-07-14] MEDS: LACTOBACILLUS RHAMNOSUS GG 1 EACH CAP.SPRINK GT SCH ×2 (09:05→17:20)
[2016-07-14] MEDS: ASCORBIC ACID 500 MG TABLET GT SCH (09:06)
[2016-07-14] MEDS: FERROUS SULFATE (325 MG) 325 MG/TAB TABLET PO SCH ×2 (09:06→17:18)
[2016-07-14] MEDS: Z GUARD REMEDY 2 OZ OINT TP SCH (09:14)
[2016-07-14] MEDS: oxyCODONE/APAP (5/325 MG) 1 UDTAB TABLET GT PRN (09:21)
[2016-07-14] MEDS: DAKINS HALF STRENGTH (0.25%) 480 ML BOTTLE TOP SCH (11:23)
[2016-07-14 12:00] VITALS: BP 92/62
[2016-07-14] MEDS ORDERED: POTASSIUM CHLORIDE 20 MEQ POWDER PACKET PO SCH (13:00)
[2016-07-14] MEDS ORDERED: MORPHINE SULFATE INJ 2 MG/ML DISP.SYRIN IV ONE (14:30)
[2016-07-14 16:00] VITALS: BP 79/45
[2016-07-14] MEDS ORDERED: SECONDARY IV SET 1 EA INFUS.SET MC ONE (18:21)
[2016-07-14] MEDS ORDERED: IV SET PRIMARY PUMP SET 1 EA INFUS.SET MC ONE (18:21)
[2016-07-14] MEDS: ALBUMIN 25% 25 GM in PREMIX 1 EA IV SCH (18:25)
[2016-07-14 20:00] VITALS: BP 102/67
[2016-07-14] MEDS: MORPHINE SULFATE INJ 4 MG/ML DISP.SYRIN IV PRN (22:13)
[2016-07-14] MEDS: FIBERSOURCE HN 1,000 ML BOTTLE GT PRN (23:54)
[2016-07-15] VITALS: BP 108/68
[2016-07-15] MEDS: ALBUMIN 25% 25 GM in PREMIX 1 EA IV SCH ×2 (01:08→10:42)
[2016-07-15] MEDS: MORPHINE SULFATE INJ 4 MG/ML DISP.SYRIN IV PRN ×2 (02:50→22:06)
[2016-07-15 04:00] VITALS: BP 90/56
[2016-07-15] MEDS: METRONIDAZOLE 500 MG TABLET GT SCH ×3 (04:30→21:50)
[2016-07-15] MEDS: diphenhydrAMINE HCL 50 MG/ML VIAL IV PRN (04:31)
[2016-07-15] MEDS ORDERED: IV NS 0.9% 1,000 ML ONE (05:23)
[2016-07-15 07:00] LABS: BASOPHILS % (AUTO) 0.5 % (0.0-2.0); DIFF TOTAL % 100 %; EOSINOPHILS # (AUTO) 0.1 /CMM (0.0-0.7); EOSINOPHILS % (AUTO) 0.7 % (0.0-6.0); HEMATOCRIT 23 % (33-45); HEMOGLOBIN 7.5 g/dL (11.5-14.8); LYMPHOCYTES # (AUTO) 1.4 /CMM (0.8-4.8); LYMPHOCYTES % (AUTO) 18.3 % (20.0-44.0); MEAN CORPUSCULAR HEMOGLOBIN 28 PG (26.0-33.0); MEAN CORPUSCULAR HGB CONC 32 g/dl (31.0-36.0); MEAN CORPUSCULAR VOLUME 87 fL (82-100); MONOCYTES # (AUTO) 0.9 /CMM (0.1-1.30); MONOCYTES % (AUTO) 11.7 % (2.0-12.0); NEUTROPHILS # (AUTO) 5.2 /CMM (1.8-8.9); NEUTROPHILS % (AUTO) 68.8 % (43.0-81.0); PLATELET COUNT (AUTO) 552 /CMM (150-450); RED BLOOD CELL COUNT(AUTO) 2.68 MIL/uL (4.0-5.2); WHITE BLOOD COUNT (AUTO) 7.6 K/uL (4.3-11.0)
[2016-07-15 07:25] LABS: CALCIUM, SERUM 8.1 mg/dL (8.5-10.1); CREATININE 0.3 mg/dL (0.6-1.3); PHOSPHORUS 2.6 mg/dL (2.5-4.9); POTASSIUM 3.3 mmol/L (3.5-5.1)
[2016-07-15 08:00] VITALS: BP 97/39
[2016-07-15] MEDS: MORPHINE SULFATE INJ 2 MG/ML DISP.SYRIN IM PRN ×2 (09:36→16:16)
[2016-07-15] MEDS: PANTOPRAZOLE 40 MG VIAL IV SCH (09:36)
[2016-07-15] MEDS: COLISTIMETHATE SODIUM 100 MG in IV NS 0.9% 50 ML IV SCH ×2 (09:36→21:49)
[2016-07-15] MEDS: PROSOURCE / PROSTAT (PYXIS) 30 ML UDC GT SCH ×2 (09:36→16:15)
[2016-07-15] MEDS: LACTOBACILLUS RHAMNOSUS GG 1 EACH CAP.SPRINK GT SCH ×2 (09:37→16:15)
[2016-07-15] MEDS: ASCORBIC ACID 500 MG TABLET GT SCH (09:37)
[2016-07-15] MEDS: DAKINS HALF STRENGTH (0.25%) 480 ML BOTTLE TOP SCH (09:37)
[2016-07-15] MEDS: ALPRAZOLAM 0.25 MG TABLET GT SCH ×2 (09:37→16:15)
[2016-07-15] MEDS: BACLOFEN (10 MG) 10 MG TABLET PO SCH ×3 (09:37→16:15)
[2016-07-15] MEDS: MULTIVITAMINS,THERAPEUTIC 1 UDTAB TABLET GT SCH (09:37)
[2016-07-15] MEDS: FERROUS SULFATE (325 MG) 325 MG/TAB TABLET PO SCH ×2 (09:37→16:15)
[2016-07-15] MEDS: Z GUARD REMEDY 2 OZ OINT TP SCH (09:38)
[2016-07-15] MEDS ORDERED: SECONDARY IV SET 1 EA INFUS.SET MC ONE ×2 (11:33→12:16)
[2016-07-15 12:00] VITALS: BP 103/68
[2016-07-15] MEDS: Magnesium 1GM/D5W 100ML PREMIX 100 ML IV SCH ×4 (12:19→18:38)
[2016-07-15] MEDS ORDERED: POTASSIUM CHLORIDE 20 MEQ POWDER PACKET GT SCH (12:30)
[2016-07-15 16:00] VITALS: BP_SYST 103; BP_DIAS 64; BP_DIAS 69
[2016-07-15] MEDS: FIBERSOURCE HN 1,000 ML BOTTLE GT PRN (16:14)
[2016-07-15 20:00] VITALS: BP 101/64
[2016-07-15] MEDS: MAGNESIUM OXIDE 400 MG TABLET PO SCH (21:50)
[2016-07-15] MEDS: IV NS 0.9% 1,000 ML BAG IV PRN (21:52)
[2016-07-16] VITALS: BP 94/55
[2016-07-16] MEDS: TEMAZEPAM 15 MG CAPSULE GT PRN (00:17)
[2016-07-16] MEDS: diphenhydrAMINE HCL 50 MG/ML VIAL IV PRN ×2 (02:59→14:50)
[2016-07-16 04:00] VITALS: BP 104/71
[2016-07-16] MEDS: METRONIDAZOLE 500 MG TABLET GT SCH ×3 (05:41→20:48)
[2016-07-16] MEDS: MORPHINE SULFATE INJ 4 MG/ML DISP.SYRIN IV PRN ×3 (05:42→17:55)
[2016-07-16 07:59] LABS: CALCIUM, SERUM 8.5 mg/dL (8.5-10.1); CREATININE 0.3 mg/dL (0.6-1.3); POTASSIUM 3.7 mmol/L (3.5-5.1)
[2016-07-16 08:00] VITALS: BP 100/73
[2016-07-16] MEDS ORDERED: SECONDARY IV SET 1 EA INFUS.SET MC ONE ×2 (09:07→16:54)
[2016-07-16] MEDS: LACTOBACILLUS RHAMNOSUS GG 1 EACH CAP.SPRINK GT SCH ×2 (09:45→17:03)
[2016-07-16] MEDS: MULTIVITAMINS,THERAPEUTIC 1 UDTAB TABLET GT SCH (09:45)
[2016-07-16] MEDS: ASCORBIC ACID 500 MG TABLET GT SCH (09:45)
[2016-07-16] MEDS: PROSOURCE / PROSTAT (PYXIS) 30 ML UDC GT SCH ×2 (09:45→17:03)
[2016-07-16] MEDS: DAKINS HALF STRENGTH (0.25%) 480 ML BOTTLE TOP SCH (09:46)
[2016-07-16] MEDS: PANTOPRAZOLE 40 MG VIAL IV SCH (09:46)
[2016-07-16] MEDS: COLISTIMETHATE SODIUM 100 MG in IV NS 0.9% 50 ML IV SCH ×2 (09:46→20:49)
[2016-07-16] MEDS: ALPRAZOLAM 0.25 MG TABLET GT SCH ×2 (09:46→17:03)
[2016-07-16] MEDS: FERROUS SULFATE (325 MG) 325 MG/TAB TABLET PO SCH ×2 (09:46→17:03)
[2016-07-16] MEDS: BACLOFEN (10 MG) 10 MG TABLET PO SCH ×3 (09:46→17:03)
[2016-07-16] MEDS: Z GUARD REMEDY 2 OZ OINT TP SCH (09:46)
[2016-07-16] MEDS: FIBERSOURCE HN 1,000 ML BOTTLE GT PRN (10:39)
[2016-07-16 12:00] VITALS: BP 109/74
[2016-07-16 13:37] LABS: BASOPHILS % (AUTO) 0.3 % (0.0-2.0); DIFF TOTAL % 100 %; EOSINOPHILS # (AUTO) 0.1 /CMM (0.0-0.7); EOSINOPHILS % (AUTO) 0.8 % (0.0-6.0); HEMATOCRIT 21 % (33-45); LYMPHOCYTES # (AUTO) 1.1 /CMM (0.8-4.8); MEAN CORPUSCULAR HEMOGLOBIN 26 PG (26.0-33.0); MEAN CORPUSCULAR HGB CONC 31 g/dl (31.0-36.0); MEAN CORPUSCULAR VOLUME 85 fL (82-100); MONOCYTES # (AUTO) 0.7 /CMM (0.1-1.30); MONOCYTES % (AUTO) 8.3 % (2.0-12.0); NEUTROPHILS % (AUTO) 76.6 % (43.0-81.0); PLATELET COUNT (AUTO) 479 /CMM (150-450); RED BLOOD CELL COUNT(AUTO) 2.48 MIL/uL (4.0-5.2); WHITE BLOOD COUNT (AUTO) 7.8 K/uL (4.3-11.0)
[2016-07-16 14:03] LABS: HEMOGLOBIN 6.5 g/dL (11.5-14.8)
[2016-07-16] MEDS ORDERED: BLOOD IV SET 1 EA INFUS.SET MC ONE ×2 (14:31→23:43)
[2016-07-16] MEDS ORDERED: IV NS 0.9% 250 ML IV ONE ×2 (14:32→23:43)
[2016-07-16] MEDS: IV NS 0.9% 1,000 ML BAG IV PRN (14:54)
[2016-07-16] MEDS ORDERED: Magnesium 1GM/D5W 100ML PREMIX 100 ML IV SCH (15:30)
[2016-07-16 16:00] VITALS: BP_SYST 123; BP_DIAS 87; BP_DIAS 88
[2016-07-16 17:47] LABS: EOSINOPHILS % (MANUAL) 1 % (0-4)
[2016-07-16 17:48] LABS: LYMPHOCYTES % (MANUAL) 15 % (16-48); PLATELET ESTIMATE INCREASED
[2016-07-16 17:49] LABS: HYPOCHROMASIA 3+
[2016-07-16 20:00] VITALS: BP 84/50
[2016-07-16] MEDS: MAGNESIUM OXIDE 400 MG TABLET PO SCH (20:48)
[2016-07-17] VITALS (12 sets, daily range): BP systolic 88–143; BP diastolic 51–94
[2016-07-17] MEDS: MORPHINE SULFATE INJ 4 MG/ML DISP.SYRIN IV PRN ×4 (00:08→21:16)
[2016-07-17] MEDS: ACETAMINOPHEN 650 MG/20.3 ML UDC NG PRN (00:22)
[2016-07-17] MEDS: METRONIDAZOLE 500 MG TABLET GT SCH ×3 (04:25→21:07)
[2016-07-17 09:14] LABS: BASOPHILS % (AUTO) 0.1 % (0.0-2.0); DIFF TOTAL % 100 %; EOSINOPHILS % (AUTO) 0.4 % (0.0-6.0); HEMATOCRIT 26 % (33-45); HEMOGLOBIN 8.5 g/dL (11.5-14.8); LYMPHOCYTES # (AUTO) 1.4 /CMM (0.8-4.8); LYMPHOCYTES % (AUTO) 13.6 % (20.0-44.0); MEAN CORPUSCULAR HEMOGLOBIN 28 PG (26.0-33.0); MEAN CORPUSCULAR HGB CONC 32 g/dl (31.0-36.0); MEAN CORPUSCULAR VOLUME 86 fL (82-100); MONOCYTES % (AUTO) 9.3 % (2.0-12.0); NEUTROPHILS # (AUTO) 7.9 /CMM (1.8-8.9); NEUTROPHILS % (AUTO) 76.6 % (43.0-81.0); PLATELET COUNT (AUTO) 605 /CMM (150-450); RED BLOOD CELL COUNT(AUTO) 3.04 MIL/uL (4.0-5.2); WHITE BLOOD COUNT (AUTO) 10.3 K/uL (4.3-11.0)
[2016-07-17] MEDS: IV NS 0.9% 1,000 ML BAG IV PRN (09:14)
[2016-07-17] MEDS: FIBERSOURCE HN 1,000 ML BOTTLE GT PRN (09:15)
[2016-07-17] MEDS: FERROUS SULFATE (325 MG) 325 MG/TAB TABLET PO SCH ×2 (09:15→16:26)
[2016-07-17] MEDS: PROSOURCE / PROSTAT (PYXIS) 30 ML UDC GT SCH ×2 (09:15→16:26)
[2016-07-17] MEDS: LACTOBACILLUS RHAMNOSUS GG 1 EACH CAP.SPRINK GT SCH ×2 (09:16→16:26)
[2016-07-17] MEDS: BACLOFEN (10 MG) 10 MG TABLET PO SCH ×3 (09:16→16:26)
[2016-07-17] MEDS: PANTOPRAZOLE 40 MG VIAL IV SCH (09:16)
[2016-07-17] MEDS: ALPRAZOLAM 0.25 MG TABLET GT SCH ×2 (09:16→16:26)
[2016-07-17] MEDS: ASCORBIC ACID 500 MG TABLET GT SCH (09:16)
[2016-07-17] MEDS: MULTIVITAMINS,THERAPEUTIC 1 UDTAB TABLET GT SCH (09:16)
[2016-07-17] MEDS: COLISTIMETHATE SODIUM 100 MG in IV NS 0.9% 50 ML IV SCH ×2 (09:17→21:07)
[2016-07-17] MEDS: DAKINS HALF STRENGTH (0.25%) 480 ML BOTTLE TOP SCH (09:20)
[2016-07-17] MEDS: Z GUARD REMEDY 2 OZ OINT TP SCH (09:22)
[2016-07-17 09:29] LABS: CALCIUM, SERUM 8.5 mg/dL (8.5-10.1); CREATININE 0.3 mg/dL (0.6-1.3); POTASSIUM 3.9 mmol/L (3.5-5.1)
[2016-07-17] MEDS: MORPHINE SULFATE INJ 2 MG/ML DISP.SYRIN IM PRN (09:36)
[2016-07-17] MEDS: diphenhydrAMINE HCL 50 MG/ML VIAL IV PRN (12:15)
[2016-07-17] MEDS: HYDROGEL DRESSING 90 GM TUBE TP SCH (12:17)
[2016-07-17] MEDS: MAGNESIUM OXIDE 400 MG TABLET PO SCH (21:07)
[2016-07-18] VITALS: BP 115/78
[2016-07-18] MEDS: TEMAZEPAM 15 MG CAPSULE GT PRN ×2 (00:59→22:11)
[2016-07-18 04:00] VITALS: BP 113/79
[2016-07-18] MEDS: METRONIDAZOLE 500 MG TABLET GT SCH ×3 (04:45→21:04)
[2016-07-18] MEDS: FIBERSOURCE HN 1,000 ML BOTTLE GT PRN ×2 (04:45→21:06)
[2016-07-18] MEDS: IV NS 0.9% 1,000 ML BAG IV PRN ×2 (04:46→19:24)
[2016-07-18] MEDS: MORPHINE SULFATE INJ 4 MG/ML DISP.SYRIN IV PRN ×3 (05:55→18:59)
[2016-07-18 08:00] VITALS: BP 90/60
[2016-07-18] MEDS: FERROUS SULFATE (325 MG) 325 MG/TAB TABLET PO SCH ×2 (09:11→16:41)
[2016-07-18] MEDS: MULTIVITAMINS,THERAPEUTIC 1 UDTAB TABLET GT SCH (09:11)
[2016-07-18] MEDS: ALPRAZOLAM 0.25 MG TABLET GT SCH ×2 (09:11→16:41)
[2016-07-18] MEDS: ASCORBIC ACID 500 MG TABLET GT SCH (09:11)
[2016-07-18] MEDS: LACTOBACILLUS RHAMNOSUS GG 1 EACH CAP.SPRINK GT SCH ×2 (09:11→16:41)
[2016-07-18] MEDS: PANTOPRAZOLE 40 MG VIAL IV SCH (09:11)
[2016-07-18] MEDS: BACLOFEN (10 MG) 10 MG TABLET PO SCH ×3 (09:11→16:41)
[2016-07-18] MEDS: PROSOURCE / PROSTAT (PYXIS) 30 ML UDC GT SCH ×2 (09:11→16:41)
[2016-07-18] MEDS: HYDROGEL DRESSING 90 GM TUBE TP SCH (09:13)
[2016-07-18] MEDS: DAKINS HALF STRENGTH (0.25%) 480 ML BOTTLE TOP SCH (09:13)
[2016-07-18] MEDS: COLISTIMETHATE SODIUM 100 MG in IV NS 0.9% 50 ML IV SCH ×2 (09:13→21:04)
[2016-07-18] MEDS: diphenhydrAMINE HCL 50 MG/ML VIAL IV PRN ×3 (09:23→22:11)
[2016-07-18 12:00] VITALS: BP 101/66
[2016-07-18 16:00] VITALS: BP 107/72
[2016-07-18 16:12] LABS: *SPE ALBUMIN 2.3 g/dL (2.9-4.4)
[2016-07-18 20:00] VITALS: BP 109/76
[2016-07-18] MEDS: MAGNESIUM OXIDE 400 MG TABLET PO SCH (21:04)
[2016-07-19] VITALS (7 sets, daily range): BP systolic 80–124; BP diastolic 49–85
[2016-07-19] MEDS: METRONIDAZOLE 500 MG TABLET GT SCH ×3 (05:27→20:49)
[2016-07-19] MEDS: MORPHINE SULFATE INJ 4 MG/ML DISP.SYRIN IV PRN ×3 (05:32→16:20)
[2016-07-19] MEDS: ONDANSETRON HCL/PF 4 MG/2 ML VIAL IV PRN ×2 (08:44→21:47)
[2016-07-19] MEDS: LACTOBACILLUS RHAMNOSUS GG 1 EACH CAP.SPRINK GT SCH ×2 (08:44→16:18)
[2016-07-19] MEDS: FERROUS SULFATE (325 MG) 325 MG/TAB TABLET PO SCH ×2 (08:44→16:18)
[2016-07-19] MEDS: PROSOURCE / PROSTAT (PYXIS) 30 ML UDC GT SCH ×2 (08:44→16:18)
[2016-07-19] MEDS: BACLOFEN (10 MG) 10 MG TABLET PO SCH ×3 (08:44→16:19)
[2016-07-19] MEDS: MULTIVITAMINS,THERAPEUTIC 1 UDTAB TABLET GT SCH (08:44)
[2016-07-19] MEDS: ALPRAZOLAM 0.25 MG TABLET GT SCH ×2 (08:45→16:19)
[2016-07-19] MEDS: ASCORBIC ACID 500 MG TABLET GT SCH (08:45)
[2016-07-19] MEDS: PANTOPRAZOLE 40 MG VIAL IV SCH (08:45)
[2016-07-19] MEDS: COLISTIMETHATE SODIUM 100 MG in IV NS 0.9% 50 ML IV SCH ×2 (08:46→20:48)
[2016-07-19] MEDS: HYDROGEL DRESSING 90 GM TUBE TP SCH (10:17)
[2016-07-19] MEDS: DAKINS HALF STRENGTH (0.25%) 480 ML BOTTLE TOP SCH (10:17)
[2016-07-19] MEDS: ACETAMINOPHEN 650 MG/20.3 ML UDC NG PRN ×2 (12:49→21:47)
[2016-07-19] MEDS: diphenhydrAMINE HCL 50 MG/ML VIAL IV PRN ×2 (12:50→21:47)
[2016-07-19] MEDS ORDERED: IPRATROPIUM NEB FS 0.5 MG/2.5 ML AMPUL.NEB ONE (13:54)
[2016-07-19] MEDS: IPRATROPIUM NEB FS 0.5 MG/2.5 ML AMPUL.NEB NEB SCH ×2 (13:59→19:26)
[2016-07-19] MEDS ORDERED: IV NS 0.9% 500 ML IV ONE (14:30)
[2016-07-19 14:39] LABS: ABG BASE EXCESS 3.9 mmol/L; ABG PCO2 40.3 mmHg (35.0-45.0); ABG PO2 110.1 mmHg (75.0-100.0); ABG TOTAL HEMOGLOBIN 8.8 G/dL (12.0-16.0); ALLEN TEST Pass; AaDO2 128.8 mmHg; O2Hb 95.6 % (94.0-97.0)
[2016-07-19] MEDS: FIBERSOURCE HN 1,000 ML BOTTLE GT PRN (15:43)
[2016-07-19] MEDS: IV NS 0.9% 1,000 ML BAG IV PRN (20:48)
[2016-07-19] MEDS: MAGNESIUM OXIDE 400 MG TABLET PO SCH (21:47)
[2016-07-19] MEDS: oxyCODONE/APAP (5/325 MG) 1 UDTAB TABLET GT PRN (22:04)
[2016-07-20] MEDS: MORPHINE SULFATE INJ 4 MG/ML DISP.SYRIN IV PRN ×6 (00:13→22:07)
[2016-07-20] MEDS: IPRATROPIUM NEB FS 0.5 MG/2.5 ML AMPUL.NEB NEB SCH ×4 (01:28→19:29)
[2016-07-20] MEDS: TEMAZEPAM 15 MG CAPSULE GT PRN ×2 (01:52→23:33)
[2016-07-20 04:00] VITALS: BP 89/51
[2016-07-20] MEDS: METRONIDAZOLE 500 MG TABLET GT SCH ×3 (04:46→21:59)
[2016-07-20 08:00] VITALS: BP 89/53
[2016-07-20] MEDS: LACTOBACILLUS RHAMNOSUS GG 1 EACH CAP.SPRINK GT SCH ×2 (09:28→16:14)
[2016-07-20] MEDS: HYDROGEL DRESSING 90 GM TUBE TP SCH (09:28)
[2016-07-20] MEDS: PANTOPRAZOLE 40 MG VIAL IV SCH (09:28)
[2016-07-20] MEDS: COLISTIMETHATE SODIUM 100 MG in IV NS 0.9% 50 ML IV SCH ×2 (09:28→21:59)
[2016-07-20] MEDS: ALPRAZOLAM 0.25 MG TABLET GT SCH ×2 (09:28→16:14)
[2016-07-20] MEDS: BACLOFEN (10 MG) 10 MG TABLET PO SCH ×3 (09:28→16:14)
[2016-07-20] MEDS: FERROUS SULFATE (325 MG) 325 MG/TAB TABLET PO SCH ×2 (09:28→16:14)
[2016-07-20] MEDS: MULTIVITAMINS,THERAPEUTIC 1 UDTAB TABLET GT SCH (09:28)
[2016-07-20] MEDS: ASCORBIC ACID 500 MG TABLET GT SCH (09:28)
[2016-07-20] MEDS: DAKINS HALF STRENGTH (0.25%) 480 ML BOTTLE TOP SCH (09:29)
[2016-07-20] MEDS: PROSOURCE / PROSTAT (PYXIS) 30 ML UDC GT SCH ×2 (09:29→16:14)
[2016-07-20] MEDS: FIBERSOURCE HN 1,000 ML BOTTLE GT PRN (11:42)
[2016-07-20] MEDS: IV NS 0.9% 1,000 ML BAG IV PRN (11:43)
[2016-07-20 12:00] VITALS: BP 96/57
[2016-07-20] MEDS: diphenhydrAMINE HCL 50 MG/ML VIAL IV PRN ×2 (12:33→16:23)
[2016-07-20 16:00] VITALS: BP 98/34
[2016-07-20 20:00] VITALS: BP 98/64
[2016-07-20] MEDS: MAGNESIUM OXIDE 400 MG TABLET PO SCH (22:03)
[2016-07-21] VITALS: BP 88/54
[2016-07-21 00:15] VITALS: BP 87/56
[2016-07-21] MEDS: IPRATROPIUM NEB FS 0.5 MG/2.5 ML AMPUL.NEB NEB SCH ×4 (00:27→19:54)
[2016-07-21] MEDS: MORPHINE SULFATE INJ 4 MG/ML DISP.SYRIN IV PRN ×2 (01:45→14:12)
[2016-07-21] MEDS: IV NS 0.9% 1,000 ML BAG IV PRN ×2 (01:51→19:31)
[2016-07-21 04:00] VITALS: BP_SYST 88; BP_SYST 91; BP_DIAS 57; BP_DIAS 58
[2016-07-21] MEDS: METRONIDAZOLE 500 MG TABLET GT SCH ×3 (04:11→21:36)
[2016-07-21] MEDS: diphenhydrAMINE HCL 50 MG/ML VIAL IV PRN ×2 (04:11→10:30)
[2016-07-21 06:51] LABS: BASOPHILS # (AUTO) 0.1 /CMM (0.0-0.2); BASOPHILS % (AUTO) 0.6 % (0.0-2.0); DIFF TOTAL % 100 %; EOSINOPHILS # (AUTO) 0.1 /CMM (0.0-0.7); HEMATOCRIT 24 % (33-45); HEMOGLOBIN 7.6 g/dL (11.5-14.8); LYMPHOCYTES # (AUTO) 1.4 /CMM (0.8-4.8); LYMPHOCYTES % (AUTO) 17.1 % (20.0-44.0); MEAN CORPUSCULAR HEMOGLOBIN 28 PG (26.0-33.0); MEAN CORPUSCULAR HGB CONC 32 g/dl (31.0-36.0); MEAN CORPUSCULAR VOLUME 86 fL (82-100); MONOCYTES % (AUTO) 12.2 % (2.0-12.0); NEUTROPHILS # (AUTO) 5.7 /CMM (1.8-8.9); NEUTROPHILS % (AUTO) 69.1 % (43.0-81.0); PLATELET COUNT (AUTO) 468 /CMM (150-450); RED BLOOD CELL COUNT(AUTO) 2.74 MIL/uL (4.0-5.2); WHITE BLOOD COUNT (AUTO) 8.3 K/uL (4.3-11.0)
[2016-07-21 08:00] VITALS: BP 93/54
[2016-07-21] MEDS: MULTIVITAMINS,THERAPEUTIC 1 UDTAB TABLET GT SCH (08:09)
[2016-07-21] MEDS: LACTOBACILLUS RHAMNOSUS GG 1 EACH CAP.SPRINK GT SCH ×2 (08:09→16:22)
[2016-07-21] MEDS: ASCORBIC ACID 500 MG TABLET GT SCH (08:09)
[2016-07-21] MEDS: MORPHINE SULFATE INJ 2 MG/ML DISP.SYRIN IM PRN (08:09)
[2016-07-21] MEDS: PANTOPRAZOLE 40 MG VIAL IV SCH (08:09)
[2016-07-21] MEDS: PROSOURCE / PROSTAT (PYXIS) 30 ML UDC GT SCH ×2 (08:09→16:23)
[2016-07-21] MEDS: ALPRAZOLAM 0.25 MG TABLET GT SCH ×2 (08:09→16:23)
[2016-07-21] MEDS: FERROUS SULFATE (325 MG) 325 MG/TAB TABLET PO SCH ×2 (08:09→16:22)
[2016-07-21] MEDS: BACLOFEN (10 MG) 10 MG TABLET PO SCH ×3 (08:09→16:23)
[2016-07-21] MEDS: HYDROGEL DRESSING 90 GM TUBE TP SCH (09:00)
[2016-07-21] MEDS: DAKINS HALF STRENGTH (0.25%) 480 ML BOTTLE TOP SCH (09:00)
[2016-07-21] MEDS: COLISTIMETHATE SODIUM 100 MG in IV NS 0.9% 50 ML IV SCH ×2 (09:40→21:26)
[2016-07-21 16:00] VITALS: BP_SYST 127; BP_SYST 95; BP_DIAS 54; BP_DIAS 77
[2016-07-21] MEDS: oxyCODONE/APAP (5/325 MG) 1 UDTAB TABLET GT PRN (16:23)
[2016-07-21 20:00] VITALS: BP 97/66
[2016-07-21] MEDS: MAGNESIUM OXIDE 400 MG TABLET PO SCH (21:35)
[2016-07-21] MEDS: FIBERSOURCE HN 1,000 ML BOTTLE GT PRN (21:37)
[2016-07-22] MEDS: IPRATROPIUM NEB FS 0.5 MG/2.5 ML AMPUL.NEB NEB SCH ×4 (01:29→20:19)
[2016-07-22] MEDS: MORPHINE SULFATE INJ 4 MG/ML DISP.SYRIN IV PRN ×4 (01:37→22:12)
[2016-07-22] MEDS: LORAZEPAM INJ 2 MG/ML VIAL IVP PRN (03:44)
[2016-07-22 04:00] VITALS: BP 89/49
[2016-07-22] MEDS: IV NS 0.9% 1,000 ML BAG IV PRN ×2 (05:40→23:03)
[2016-07-22] MEDS: METRONIDAZOLE 500 MG TABLET GT SCH ×3 (05:41→21:46)
[2016-07-22] MEDS: MORPHINE SULFATE INJ 2 MG/ML DISP.SYRIN IM PRN (05:55)
[2016-07-22 08:00] VITALS: BP 90/59
[2016-07-22] MEDS: diphenhydrAMINE HCL 50 MG/ML VIAL IV PRN ×3 (09:12→23:23)
[2016-07-22] MEDS: ASCORBIC ACID 500 MG TABLET GT SCH (09:12)
[2016-07-22] MEDS: MULTIVITAMINS,THERAPEUTIC 1 UDTAB TABLET GT SCH (09:12)
[2016-07-22] MEDS: PROSOURCE / PROSTAT (PYXIS) 30 ML UDC GT SCH ×2 (09:12→16:45)
[2016-07-22] MEDS: LACTOBACILLUS RHAMNOSUS GG 1 EACH CAP.SPRINK GT SCH ×2 (09:12→16:45)
[2016-07-22] MEDS: PANTOPRAZOLE 40 MG VIAL IV SCH (09:12)
[2016-07-22] MEDS: FERROUS SULFATE (325 MG) 325 MG/TAB TABLET PO SCH ×2 (09:12→16:46)
[2016-07-22] MEDS: BACLOFEN (10 MG) 10 MG TABLET PO SCH ×3 (09:12→16:46)
[2016-07-22] MEDS: ALPRAZOLAM 0.25 MG TABLET GT SCH ×2 (09:14→16:45)
[2016-07-22] MEDS: DAKINS HALF STRENGTH (0.25%) 480 ML BOTTLE TOP SCH (09:17)
[2016-07-22] MEDS: HYDROGEL DRESSING 90 GM TUBE TP SCH (09:18)
[2016-07-22] MEDS ORDERED: SECONDARY IV SET 1 EA INFUS.SET MC ONE (09:42)
[2016-07-22] MEDS ORDERED: IV SET PRIMARY PUMP SET 1 EA INFUS.SET MC ONE (09:42)
[2016-07-22] MEDS: COLISTIMETHATE SODIUM 100 MG in IV NS 0.9% 50 ML IV SCH ×2 (09:47→21:47)
[2016-07-22] MEDS: FIBERSOURCE HN 1,000 ML BOTTLE GT PRN (13:07)
[2016-07-22 16:00] VITALS: BP 91/57
[2016-07-22 20:00] VITALS: BP 82/50
[2016-07-22] MEDS: MAGNESIUM OXIDE 400 MG TABLET PO SCH (21:46)
[2016-07-23] MEDS: IPRATROPIUM NEB FS 0.5 MG/2.5 ML AMPUL.NEB NEB SCH ×4 (01:19→19:52)
[2016-07-23] MEDS: TEMAZEPAM 15 MG CAPSULE GT PRN (02:51)
[2016-07-23 04:00] VITALS: BP 97/63
[2016-07-23] MEDS: METRONIDAZOLE 500 MG TABLET GT SCH ×3 (04:24→21:24)
[2016-07-23] MEDS: MORPHINE SULFATE INJ 4 MG/ML DISP.SYRIN IV PRN ×4 (05:14→22:06)
[2016-07-23] MEDS: FIBERSOURCE HN 1,000 ML BOTTLE GT PRN (05:24)
[2016-07-23 06:16] LABS: BASOPHILS % (AUTO) 0.4 % (0.0-2.0); DIFF TOTAL % 100 %; EOSINOPHILS # (AUTO) 0.1 /CMM (0.0-0.7); EOSINOPHILS % (AUTO) 0.7 % (0.0-6.0); HEMATOCRIT 26 % (33-45); HEMOGLOBIN 8.3 g/dL (11.5-14.8); LYMPHOCYTES # (AUTO) 1.8 /CMM (0.8-4.8); MEAN CORPUSCULAR HEMOGLOBIN 28 PG (26.0-33.0); MEAN CORPUSCULAR HGB CONC 33 g/dl (31.0-36.0); MEAN CORPUSCULAR VOLUME 86 fL (82-100); MONOCYTES % (AUTO) 11.4 % (2.0-12.0); NEUTROPHILS # (AUTO) 5.9 /CMM (1.8-8.9); NEUTROPHILS % (AUTO) 67.5 % (43.0-81.0); PLATELET COUNT (AUTO) 554 /CMM (150-450); RED BLOOD CELL COUNT(AUTO) 2.97 MIL/uL (4.0-5.2); WHITE BLOOD COUNT (AUTO) 8.8 K/uL (4.3-11.0)
[2016-07-23 08:00] VITALS: BP 90/51
[2016-07-23] MEDS: PROSOURCE / PROSTAT (PYXIS) 30 ML UDC GT SCH ×2 (09:50→17:09)
[2016-07-23] MEDS: BACLOFEN (10 MG) 10 MG TABLET PO SCH ×3 (09:50→17:09)
[2016-07-23] MEDS: ALPRAZOLAM 0.25 MG TABLET GT SCH ×2 (09:50→17:09)
[2016-07-23] MEDS: PANTOPRAZOLE 40 MG VIAL IV SCH (09:50)
[2016-07-23] MEDS: MULTIVITAMINS,THERAPEUTIC 1 UDTAB TABLET GT SCH (09:50)
[2016-07-23] MEDS: ASCORBIC ACID 500 MG TABLET GT SCH (09:50)
[2016-07-23] MEDS: FERROUS SULFATE (325 MG) 325 MG/TAB TABLET PO SCH ×2 (09:50→17:09)
[2016-07-23] MEDS: LACTOBACILLUS RHAMNOSUS GG 1 EACH CAP.SPRINK GT SCH ×2 (09:50→17:09)
[2016-07-23] MEDS: COLISTIMETHATE SODIUM 100 MG in IV NS 0.9% 50 ML IV SCH ×2 (09:50→21:25)
[2016-07-23] MEDS: DAKINS HALF STRENGTH (0.25%) 480 ML BOTTLE TOP SCH (09:51)
[2016-07-23] MEDS: HYDROGEL DRESSING 90 GM TUBE TP SCH (09:51)
[2016-07-23 12:00] VITALS: BP 113/72
[2016-07-23] MEDS: diphenhydrAMINE HCL 50 MG/ML VIAL IV PRN (12:32)
[2016-07-23 16:00] VITALS: BP_SYST 126; BP_SYST 92; BP_DIAS 57; BP_DIAS 58
[2016-07-23] MEDS: IV NS 0.9% 1,000 ML BAG IV PRN (16:01)
[2016-07-23 20:00] VITALS: BP 93/62
[2016-07-23] MEDS: MAGNESIUM OXIDE 400 MG TABLET PO SCH (21:23)
[2016-07-23] MEDS: ACETAMINOPHEN 650 MG/20.3 ML UDC NG PRN (21:59)
[2016-07-24] MEDS: diphenhydrAMINE HCL 50 MG/ML VIAL IV PRN ×3 (01:04→18:40)
[2016-07-24] MEDS: FIBERSOURCE HN 1,000 ML BOTTLE GT PRN ×2 (01:04→17:40)
[2016-07-24] MEDS: TEMAZEPAM 15 MG CAPSULE GT PRN ×2 (01:04→23:30)
[2016-07-24] MEDS: IPRATROPIUM NEB FS 0.5 MG/2.5 ML AMPUL.NEB NEB SCH ×4 (01:53→19:27)
[2016-07-24 04:00] VITALS: BP 87/56
[2016-07-24] MEDS: METRONIDAZOLE 500 MG TABLET GT SCH ×3 (04:02→21:27)
[2016-07-24] MEDS: IV NS 0.9% 1,000 ML BAG IV PRN ×2 (04:02→17:39)
[2016-07-24] MEDS: MORPHINE SULFATE INJ 4 MG/ML DISP.SYRIN IV PRN ×3 (04:03→15:35)
[2016-07-24 07:29] LABS: CALCIUM, SERUM 8.4 mg/dL (8.5-10.1); CREATININE 0.5 mg/dL (0.6-1.3)
[2016-07-24 08:00] VITALS: BP 127/72
[2016-07-24] MEDS: COLISTIMETHATE SODIUM 100 MG in IV NS 0.9% 50 ML IV SCH ×2 (09:00→21:27)
[2016-07-24] MEDS: PROSOURCE / PROSTAT (PYXIS) 30 ML UDC GT SCH ×2 (09:00→16:07)
[2016-07-24] MEDS: FERROUS SULFATE (325 MG) 325 MG/TAB TABLET PO SCH ×2 (09:00→16:07)
[2016-07-24] MEDS: LACTOBACILLUS RHAMNOSUS GG 1 EACH CAP.SPRINK GT SCH ×2 (09:00→16:07)
[2016-07-24] MEDS: ASCORBIC ACID 500 MG TABLET GT SCH (09:00)
[2016-07-24] MEDS: PANTOPRAZOLE 40 MG VIAL IV SCH (09:00)
[2016-07-24] MEDS: MULTIVITAMINS,THERAPEUTIC 1 UDTAB TABLET GT SCH (09:00)
[2016-07-24] MEDS: HYDROGEL DRESSING 90 GM TUBE TP SCH (09:00)
[2016-07-24] MEDS: ALPRAZOLAM 0.25 MG TABLET GT SCH ×2 (09:00→16:07)
[2016-07-24] MEDS: BACLOFEN (10 MG) 10 MG TABLET PO SCH ×3 (09:00→16:07)
[2016-07-24] MEDS: DAKINS HALF STRENGTH (0.25%) 480 ML BOTTLE TOP SCH (09:00)
[2016-07-24 12:00] VITALS: BP 100/70
[2016-07-24 16:00] VITALS: BP 92/56
[2016-07-24] MEDS: FLUCONAZOLE (100 MG) 100 MG TABLET PO SCH (17:19)
[2016-07-24 20:00] VITALS: BP 102/70
[2016-07-24] MEDS: MAGNESIUM OXIDE 400 MG TABLET PO SCH (21:27)
[2016-07-25] MEDS: IPRATROPIUM NEB FS 0.5 MG/2.5 ML AMPUL.NEB NEB SCH ×3 (01:40→12:51)
[2016-07-25] MEDS: diphenhydrAMINE HCL 50 MG/ML VIAL IV PRN ×2 (02:34→11:19)
[2016-07-25] MEDS: MORPHINE SULFATE INJ 4 MG/ML DISP.SYRIN IV PRN ×3 (02:35→14:24)
[2016-07-25 04:00] VITALS: BP 90/58
[2016-07-25] MEDS: METRONIDAZOLE 500 MG TABLET GT SCH ×2 (05:13→12:20)
[2016-07-25 08:00] VITALS: BP 97/50
[2016-07-25] MEDS: FLUCONAZOLE (100 MG) 100 MG TABLET PO SCH (08:32)
[2016-07-25] MEDS: LACTOBACILLUS RHAMNOSUS GG 1 EACH CAP.SPRINK GT SCH (08:32)
[2016-07-25] MEDS: ASCORBIC ACID 500 MG TABLET GT SCH (08:32)
[2016-07-25] MEDS: MULTIVITAMINS,THERAPEUTIC 1 UDTAB TABLET GT SCH (08:32)
[2016-07-25] MEDS: PANTOPRAZOLE 40 MG VIAL IV SCH (08:32)
[2016-07-25] MEDS: ALPRAZOLAM 0.25 MG TABLET GT SCH (08:32)
[2016-07-25] MEDS: ONDANSETRON HCL/PF 4 MG/2 ML VIAL IV PRN (08:32)
[2016-07-25] MEDS: PROSOURCE / PROSTAT (PYXIS) 30 ML UDC GT SCH (08:32)
[2016-07-25] MEDS: BACLOFEN (10 MG) 10 MG TABLET PO SCH ×2 (08:33→12:20)
[2016-07-25] MEDS ORDERED: IV SET PRIMARY PUMP SET 1 EA INFUS.SET MC ONE (08:34)
[2016-07-25] MEDS ORDERED: SECONDARY IV SET 1 EA INFUS.SET MC ONE (08:35)
[2016-07-25] MEDS: FERROUS SULFATE (325 MG) 325 MG/TAB TABLET PO SCH (08:38)
[2016-07-25] MEDS: IV NS 0.9% 1,000 ML BAG IV PRN (08:38)
[2016-07-25] MEDS: HYDROGEL DRESSING 90 GM TUBE TP SCH (08:39)
[2016-07-25] MEDS: COLISTIMETHATE SODIUM 100 MG in IV NS 0.9% 50 ML IV SCH (08:39)
[2016-07-25] MEDS: DAKINS HALF STRENGTH (0.25%) 480 ML BOTTLE TOP SCH (08:39)
== END 2016-07-25 15:23 | DRG 710 ==
LOC: ER 13:04 → TELE 15:47 → ICU 16:47 → TELE-TD 07-03 01:12 → TELE1 07-04 10:49 → MEDSG1 07-21 08:50
PROVIDERS: ADMIT Internal Medicine; ATTEND Internal Medicine
DX: A41.9 Sepsis, unspecified organism (principal); J96.02 Acute respiratory failure with hypercapnia; R65.21 Severe sepsis with septic shock; E43 Unspecified severe protein-calorie malnutrition; G93.40 Encephalopathy, unspecified; G93.41 Metabolic encephalopathy; J90 Pleural effusion, not elsewhere classified; L89.154 Pressure ulcer of sacral region, stage 4; D68.59 Other primary thrombophilia; L89.314 Pressure ulcer of right buttock, stage 4; L89.324 Pressure ulcer of left buttock, stage 4; R53.2 Functional quadriplegia; E87.2 Acidosis; Z93.0 Tracheostomy status; R13.10 Dysphagia, unspecified; Z93.1 Gastrostomy status; Z93.3 Colostomy status; F32.9 Major depressive disorder, single episode, unspecified; E87.6 Hypokalemia; E87.1 Hypo-osmolality and hyponatremia; N39.0 Urinary tract infection, site not specified; J96.21 Acute and chronic respiratory failure with hypoxia; J96.22 Acute and chronic respiratory failure with hypercapnia; Z74.01 Bed confinement status; Z99.11 Dependence on respirator [ventilator] status; E83.42 Hypomagnesemia; E66.9 Obesity, unspecified; E88.09 Other disorders of plasma-protein metabolism, not elsewhere classified; R74.0 Nonspecific elevation of levels of transaminase and lactic acid dehydrogenase [LDH]; L89.621 Pressure ulcer of left heel, stage 1; L57.0 Actinic keratosis; E27.40 Unspecified adrenocortical insufficiency; M86.68 Other chronic osteomyelitis, other site; D62 Acute posthemorrhagic anemia; D50.0 Iron deficiency anemia secondary to blood loss (chronic); J98.11 Atelectasis; D46.9 Myelodysplastic syndrome, unspecified; Z68.26 Body mass index [BMI] 26.0-26.9, adult; B37.0 Candidal stomatitis; B95.62 Methicillin resistant Staphylococcus aureus infection as the cause of diseases classified elsewhere
CPT/HCPCS: 31720; 36415; 36569; 36600; 71010-TC; 80048-TC; 80053-TC; 80076-TC; 80202-TC; 81000-TC; 82040-TC; 82272-TC; 82533; 82728-TC; 82746; 82803-TC; 83021; 83540-TC; 83605-TC; 83735-TC; 84100-TC; 84155; 84165; 84439-TC; 84443-TC; 84484-TC; 85025-TC; 85045-TC; 85385-TC; 85610-TC; 85660; 85730-TC; 86850-TC; 86880-TC; 86901; 86921-TC; 87040-TC; 87070-TC; 87081-TC; 87086-TC; 87186-TC; 93307-TC; 94002-TC; 94003-TC; 94640-TC; 94664-TC; 94760-TC; 94799-TC; A4216; A4217; A4606; A4623; A6248; A6253; A6402; A6403; A7526; C9113; J0770; J1170; J1200; J2060; J2270; J2405; J2543; J3370; J3475; J3480; J3490; J7030; J7040; J7042; J7050; J7060; J7070; P9016-BL; P9047; Z7610